=== PATIENT | male | born 1960 | race Caucasian/White ===

== ENCOUNTER 2020-02-28 11:02 | Outpatient (CLI) | payer OTHER, SELFPAY ==
--- NOTE | 2020-02-28 11:07 | USCV_ITS ---
Lucho Chavez Age: 60 Gender: M : 1960 Exam Date: 02/28/2020 11:28 Ordering Phys: Prabhu Stoner PA-C XX Technologist: Dereck Cano Exam [place]: [facility] [place] Indication: LEG PAIN HISTORY: Lower extremity pain. PROCEDURES: The following venous structures were evaluated: common femoral vein, profunda vein, proximal portion of the greater saphenous vein, superficial femoral vein, and the popliteal vein. In addition, the posterior tibial and peroneal trunk were evaluated. Serial compression, augmentation maneuvers, and spectral Doppler flow evaluation were performed. 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 The veins were found to be easily compressible with spontaneous blood flow. Non pulsatile flow pattern. CONCLUSIONS No evidence of DVT in the above-mentioned identifiable veins. Dr Favian Lechuga MD [facility] (Electronically Signed) Final Date: 28 February 2020 16:11 S
== END 2020-02-28 11:03 | disposition home or self-care (01) ==
LOC: RAD 11:05
PROVIDERS: Family Provider Physician Assistant Medical; PCP Physician Assistant Medical; Visit Provider Physician Assistant Medical
DX: M79.605 Pain in left leg (principal)
CPT/HCPCS: 93971

== ENCOUNTER 2020-06-19 09:10 | Outpatient (CLI) | payer OTHER, SELFPAY ==
--- NOTE | 2020-06-19 09:18 | US_ITS ---
WS: [id number] Abdomen ultrasound, 06/19/2020 Clinical Data: TRAUMATIC ECCHYMOSIS OF ABDOMINAL WALL Comparison: None. Findings: The subcutaneous tissue of the right side of the abdomen shows edema. There is no evidence of any cys t, mass or fluid collection. No abscess is seen. The pancreas shows no cyst, pseudocyst or evidence of pancreatitis. The liver shows no cysts, masses or dilated intrahepatic ducts. The gallbladder has no stones or sludge. The wall measures 0.3 cm with no pericholecystic fluid. The common bile duct is 0.3 cm and no intraductal abnormalities are noted. The right kidney is 10.6 cm. No cysts, masses or hydronephrosis is seen. The left kidney is 11.7 cm. No cysts, masses or hydronephrosis is seen. The abdominal aorta is not dilated and the inferior vena cava has normal flow. No vascular abnormalit ies are seen. The spleen measures 11.2 cm and there are no intrasplenic masses or capsular abnormalities. US/US abdomen complete* [id number] Impression: 1. Negative abdomen ultrasound. 2. Edema of the subcutaneous tissue of the right side of the abdomen but no flu id collection.
== END 2020-06-19 09:11 | disposition home or self-care (01) ==
LOC: US 09:15
PROVIDERS: PCP Physician Assistant Medical; Visit Provider Nurse Practitioner Family
DX: S30.1XXD Contusion of abdominal wall, subsequent encounter (principal); L03.311 Cellulitis of abdominal wall; X58.XXXD Exposure to other specified factors, subsequent encounter; R60.0 Localized edema
CPT/HCPCS: 76700

== ENCOUNTER 2020-07-07 07:52 | Outpatient (CLI) | payer OTHER, SELFPAY | END 2020-07-07 07:53 | disposition home or self-care (01) | LOC: WOUND 07:53 | PROVIDERS: PCP Physician Assistant Medical; Visit Provider Thoracic Surgery (Cardiothoracic Vascular Surgery) | DX: L03.313 Cellulitis of chest wall (principal) | CPT/HCPCS: 11042; 11045; G0463 ==

== ENCOUNTER 2020-07-08 11:05 | Outpatient (CLI) | payer OTHER, SELFPAY | END 2020-07-08 11:06 | disposition home or self-care (01) | LOC: WOUND 11:06 | PROVIDERS: PCP Physician Assistant Medical; Visit Provider Nurse Practitioner Family | DX: L03.311 Cellulitis of abdominal wall (principal) | CPT/HCPCS: G0463 ==

== ENCOUNTER 2020-07-09 11:03 | Outpatient (CLI) | payer OTHER, SELFPAY | END 2020-07-09 11:04 | disposition home or self-care (01) | LOC: WOUND 11:04 | PROVIDERS: PCP Physician Assistant Medical; Visit Provider Nurse Practitioner Family | DX: L03.311 Cellulitis of abdominal wall (principal) | CPT/HCPCS: 99214 ==

== ENCOUNTER 2020-07-10 11:05 | Outpatient (CLI) | payer OTHER, SELFPAY | END 2020-07-10 11:06 | disposition home or self-care (01) | LOC: WOUND 11:05 | PROVIDERS: PCP Physician Assistant Medical; Visit Provider Surgery | DX: L03.311 Cellulitis of abdominal wall (principal) | CPT/HCPCS: 99214 ==

== ENCOUNTER 2020-07-13 11:14 | Outpatient (CLI) | payer OTHER, SELFPAY | END 2020-07-13 11:15 | disposition home or self-care (01) | LOC: WOUND 11:14 | PROVIDERS: PCP Physician Assistant Medical; Visit Provider Nurse Practitioner Family | DX: L03.311 Cellulitis of abdominal wall (principal) | CPT/HCPCS: 99214 ==

== ENCOUNTER 2020-07-14 10:56 | Outpatient (CLI) | payer OTHER, SELFPAY | END 2020-07-14 10:57 | disposition home or self-care (01) | LOC: WOUND 10:57 | PROVIDERS: PCP Physician Assistant Medical; Visit Provider Thoracic Surgery (Cardiothoracic Vascular Surgery) | DX: L98.492 Non-pressure chronic ulcer of skin of other sites with fat layer exposed (principal) | CPT/HCPCS: 11042; 11045 ==

== ENCOUNTER 2020-07-21 10:57 | Outpatient (CLI) | payer OTHER, SELFPAY | END 2020-07-21 10:58 | disposition home or self-care (01) | LOC: WOUND 10:57 | PROVIDERS: PCP Physician Assistant Medical; Visit Provider Nurse Practitioner Family | DX: L98.492 Non-pressure chronic ulcer of skin of other sites with fat layer exposed (principal); L03.311 Cellulitis of abdominal wall | CPT/HCPCS: 11042; 11045 ==

== ENCOUNTER 2020-07-22 15:05 | Outpatient (CLI) | payer OTHER, SELFPAY | END 2020-07-22 15:06 | disposition home or self-care (01) | LOC: WOUND 15:08 | PROVIDERS: PCP Physician Assistant Medical; Visit Provider Thoracic Surgery (Cardiothoracic Vascular Surgery) | DX: L03.311 Cellulitis of abdominal wall (principal) | CPT/HCPCS: 97606 ==

== ENCOUNTER 2020-07-24 08:25 | Outpatient (CLI) | payer OTHER, SELFPAY | END 2020-07-24 08:26 | disposition home or self-care (01) | LOC: WOUND 08:26 | PROVIDERS: PCP Physician Assistant Medical; Visit Provider Surgery | DX: L03.311 Cellulitis of abdominal wall (principal) | CPT/HCPCS: 97606 ==

== ENCOUNTER 2020-07-28 10:48 | Outpatient (CLI) | payer OTHER, SELFPAY | END 2020-07-28 10:49 | disposition home or self-care (01) | LOC: WOUND 10:48 | PROVIDERS: PCP Physician Assistant Medical; Visit Provider Thoracic Surgery (Cardiothoracic Vascular Surgery) | DX: L98.492 Non-pressure chronic ulcer of skin of other sites with fat layer exposed (principal) | CPT/HCPCS: 11042; 11045 ==

== ENCOUNTER 2020-07-31 15:04 | Outpatient (CLI) | payer OTHER, SELFPAY | END 2020-07-31 15:05 | disposition home or self-care (01) | LOC: WOUND 15:05 | PROVIDERS: PCP Physician Assistant Medical; Visit Provider Nurse Practitioner Family | DX: L03.311 Cellulitis of abdominal wall (principal) | CPT/HCPCS: 97606 ==

== ENCOUNTER 2020-08-04 10:53 | Outpatient (CLI) | payer OTHER, SELFPAY | END 2020-08-04 10:54 | disposition home or self-care (01) | LOC: WOUND 10:53 | PROVIDERS: PCP Physician Assistant Medical; Visit Provider Thoracic Surgery (Cardiothoracic Vascular Surgery) | DX: L03.311 Cellulitis of abdominal wall (principal); L98.492 Non-pressure chronic ulcer of skin of other sites with fat layer exposed | CPT/HCPCS: 11042; 11045 ==

== ENCOUNTER 2020-08-14 08:50 | Outpatient (CLI) | payer OTHER, SELFPAY | END 2020-08-14 08:51 | disposition home or self-care (01) | LOC: WOUND 08:51 | PROVIDERS: PCP Physician Assistant Medical; Visit Provider Surgery | DX: L03.311 Cellulitis of abdominal wall (principal) | CPT/HCPCS: 97606 ==

== ENCOUNTER 2020-08-19 10:16 | Outpatient (CLI) | payer OTHER, SELFPAY | END 2020-08-19 10:17 | disposition home or self-care (01) | LOC: WOUND 10:21 | PROVIDERS: PCP Physician Assistant Medical; Visit Provider Nurse Practitioner Family | DX: L98.492 Non-pressure chronic ulcer of skin of other sites with fat layer exposed (principal) | CPT/HCPCS: 11042; 11045 ==

== ENCOUNTER 2020-08-24 14:30 | Outpatient (CLI) | payer OTHER, SELFPAY | END 2020-08-24 14:31 | disposition home or self-care (01) | LOC: WOUND 14:30 | PROVIDERS: PCP Physician Assistant Medical; Visit Provider Thoracic Surgery (Cardiothoracic Vascular Surgery) | DX: L98.493 Non-pressure chronic ulcer of skin of other sites with necrosis of muscle (principal) | CPT/HCPCS: 11042; 11045; 87070; 87077; 87176; 87186; 87205; 97606 ==

== ENCOUNTER 2025-05-20 08:20 | Outpatient (CLI) | payer MEDICARE, SELFPAY ==
--- NOTE | 2025-05-20 08:31 | FL_ITS ---
WS: [id number] Exam: FL barium swallow [id number] Date/Time of Exam: 05/20/2025 8:32 AM Reason For Exam: DYSPHAGIA Fluoroscopy time: 2min [id number] minutes # of spot films: Oropharyngeal phase of swallowing was normal. There was no sign of intrinsic esophageal mass or stricture. There is mild posterior extrinsic compression of the cervical esophagus at the C5-6 level secondary to anterior osteophytes. This causes minimal narrowing. No hiatal hernia or gastroesophageal reflux noted. Esophageal motility was otherwise normal. FL/FL barium swallow [id number] IMPRESSION: 1. Mild posterior extrinsic compression of the cervical esophagus at the C5-6 l evel secondary to prominent anterior osteophytes. This causes only minimal constance nal narrowing. 2. No intrinsic esophageal mass, stricture or other significant finding.
== END 2025-05-20 08:21 | disposition home or self-care (01) ==
LOC: RAD 08:22
PROVIDERS: PCP Nurse Practitioner Family; Visit Provider Nurse Practitioner Family
DX: R13.10 Dysphagia, unspecified (principal); K22.2 Esophageal obstruction; M25.78 Osteophyte, vertebrae; M50.322 Other cervical disc degeneration at C5-C6 level
CPT/HCPCS: 74220

== ENCOUNTER 2025-05-22 10:07 | Outpatient (CLI) | payer MEDICARE, SELFPAY ==
--- NOTE | 2025-05-22 10:15 | FL_ITS ---
WS: [id number] Exam: FL barium swallow modifd [id number] Date/Time of Exam: 05/22/2025 10:42 AM Reason For Exam: Other dysphagia Fluoroscopy time: 4min [id number] minutes # of spot films: 0 Modified barium swallow study was performed in conjunction with the speech therapy service. Oral pharyngeal phase of swallowing was normal. The patient tolerated all consistencies of barium mixture foodstuffs without aspiration or penetration. The patient ingested a barium tablet without difficulty. FL/FL barium swallow modifd [id number] IMPRESSION: 1. No penetration or aspiration identified. A separate report with recommendations will follow from the speech therapy serv ice.
== END 2025-05-22 10:08 | disposition home or self-care (01) ==
LOC: RAD 10:11
PROVIDERS: PCP Nurse Practitioner Family; Visit Provider Nurse Practitioner Family
DX: R13.19 Other dysphagia (principal)
CPT/HCPCS: 74230; 92611

== ENCOUNTER 2025-06-16 11:17 | Inpatient (IN) | payer MEDICARE, SELFPAY ==
--- OUTSIDE RECORDS SUMMARY | 2025-06-11 10:40 | XMS_ITS | Encounter Summary ---
Author Organization [facility] Address [address] [place] [address] Care Team Providers Care Coffin Maker Name Role Phone Zehra Gottlieb MD Primary Care Provider [phone] Reason for Referral * CT Scan (Urgent) - Closed Specialty Diagnoses / Procedures Referred By Donnell brewer Referred To Contact Radiology Diagnoses Shortness of breath Procedures CT CHEST WO CONTRAST Arcelia Whaley FNP [address] [place] [address] Phone: tel: fax: [facility] CT Scan [place] [address] [place] [address] Phone: tel: fax: Referral ID Status Reason Start Date Expiration Date V isits Requested Visits Authorized [id number] Closed [facility] View CTS to Schedule 06/11/2025 07/12/2026 1 1 Reason for Visit * Reason Comments Follow Up Encounter Details Date Type Department Care Team (Late st Contact Info) Description 06/11/2025 10:40 AM CDT Office Visit [facility] Family Medicine [place] [address] [facility] [address] [place] [address] Arcelia Whaley FNP [address] [place] [address] Shortness of breath (Primary Dx); Choking sensation; Encounter for colorectal cancer screening Social History Tobacco Use Types Packs/Day Years Used Date Smoking Tobacco: Former Cigarettes Q uit: 03/11/2016 Smokeless Tobacco: Never Alcohol Use Standard Drinks/Week Comments Yes 6 (1 standard drink = 0.6 oz pur e alcohol) Feeling Safe Answer Date Recorded Are you in a relationship wi th someone who hurts you emotionally and/or physically? 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 Gender Identity Not on file Sexual Orientation Not on file documented as of this encounter Last Filed Vital Signs Vital Sign Reading Time Taken Comments Blood Pressure 140/72 06/11/2025 10:44 AM CDT Pulse 104 06/11/2025 10:44 AM CDT Temperature 36.9 C (98.5 F) 06/11/2025 10:44 AM CDT Respiratory Rate 17 06/11/2025 10:44 AM CDT Oxygen Saturation 86% 06/11/2025 10:44 AM CDT Inhaled Oxygen Concentration - - Weight 82.7 kg (182 lb 6.4 oz) 06/11/2025 10:44 AM CDT Height 170.2 cm (5' 7 ) 06/11/2025 10:44 AM CDT Body Mass Index 28.57 06/11/2025 10:44 AM CDT documented in this encounter Progress Notes * Arcelia Whaley FNP - 06/11/2025 12:42 PM CDT HISTORY OF PRESENT ILLNESS: Chief Complaint Patient presents with Follow Up Subjective History of Present Illness The patient is a 65-year-old male who presents to the clinic for follow-up. He has been attempting to sleep in an upright position for the past two days due to a gurgling sound when lying down, which he believes is impacting his breathing. This gurgling sound was initially intermittent but has become more frequent, often waking him from sleep. He also experiences shortnessof breath during physical activities such as walking across his yard, necessitating frequent stops.He reports that his condition has worsened over the past week. He has sought emergency care and undergone an EKG, but no definitive diagnosis has been made. He has an upcoming appointment with an ENTspecialist on 06/16/2025. He has previously undergone a barium test and a breathing test. He describes a sensation of constriction in his throat, which he feels is preventing him from taking deep breaths. He has been trying to breathe through his nose, as he has always done, but finds it difficult.He has a persistent cough and feels as though nothing is being expelled or swallowed. He notes thathis pulse rate increases when he attempts to slow down his breathing. Sleep: He has been attempting to sleep in an upright position for the past two days. REVIEW OF SYSTEMS Review of Systems Constitutional: Negative for activity change, appetite change, fatigue and fever. HENT: Positive for trouble swallowing. Negative for congestion, postnasal drip, rhinorrhea and sorethroat. Respiratory: Positive for cough, choking, shortness of breath and wheezing. Negative for chest tightness. Cardiovascular: Negative for chest pain. Gastrointestinal: Negative for abdominal pain, diarrhea, nausea and vomiting. Musculoskeletal: Negative for arthralgias and myalgias. Skin: Negative for color change. Neurological: Negative for dizziness, weakness, light-headedness and headaches. Psychiatric/Behavioral: Negative for sleep disturbance. Objective PHYSICAL EXAM BP (!) 140/72 (BP Location: Left arm, Patient Position (BP): Sitting, BP Cuff Size: Large Adult) Pulse (!) 104 Temp 98.5 ??F (36.9 ??C) (Temporal) Resp 17 Ht 5' 7 (1.702 m) Wt 82.7 kg (182lb 6.4 oz) SpO2 (!) 86% BMI 28.57 kg/m?? Physical Exam Vitals reviewed. Constitutional: General: He is not in acute distress. Appearance: Normal appearance. HENT: Head: Normocephalic and atraumatic. Right Ear: External ear normal. Left Ear: External ear normal. Eyes: Conjunctiva/sclera: Conjunctivae normal. Cardiovascular: Rate and Rhythm: Regular rhythm. Tachycardia present. Heart sounds: Normal heart sounds. Pulmonary: Effort: Pulmonary effort is normal. Breath sounds: Wheezing present. Musculoskeletal: General: No deformity. Cervical back: Neck supple. Skin: General: Skin is warm. Findings: No rash. Neurological: Mental Status: He is alert and oriented to person, place, and time. Psychiatric: Behavior: Behavior normal. Results ASSESSMENT and PLAN: Orders Placed This Encounter CT CHEST WO CONTRAST Assessment & Plan 1. Shortness of breath: Subacute. - Worsening shortness of breath, difficulty breathing when lying down, and needing to sleep sittingup. Panting and increased pulse rate when walking across the yard. Oxygen levels are suboptimal, potentially due to inadequate nasal breathing. Struggles with deep inhalation and exhalation, feeling constricted. - Conduct EKG today to assess cardiac function. - If EKG results are abnormal, consider further cardiac evaluation. - If EKG is normal, arrange stat CT of the lungs at [place] to investigate potential pulmonary causes. Follow-up - ENT appointment on Monday. - Neurosurgeon consultation on the . STUART Montague, 06/11/2025 8:19 PM The author of this note, patient (or authorized technical support representative), and all other persons present consent to the audio recording of this visit for charting documentation purposes. This note was automatically generated by a [employer] AI technology (Solid Sound), reviewed, edited, and finalized by STUART Montague. documented in this encounter Plan of Treatment Upcoming Encounters Date Type Department Care Team (Late st Contact Info) Description 06/19/2025 1:20 PM CDT Office Visit [facility] Medicine [address] [address] Arcelia Whaley FNP [address] [place] [address] 07/02/2025 10:00 AM CDT Office Visit [facility] Neurosurgery [address] [place] [address] Valerie Mills NP [address] [place] [address] documented as of this encounter Results * CT CHEST WO CONTRAST (06/11/2025 2:42 PM CDT) Anatomical Region Laterality Modality Chest Computed Tomogra phy 06/11/2025 2:27 PM CDT Impressions 06/11/2025 3:11 PM CDT IMPRESSION: Please see below. Exam: CT CHEST WO CONTRAST Date/Time of Exam: 06/11/2025 2:42 PM Reason For Exam: Dyspnea, chronic, unclear etiology. Diagnosis: Shortness of breath. Technique: CT of the chest was performed without the administration of intravenous contrast. Comparison: April 01, 2016. FINDINGS: Evaluation of the vasculature is limited without the use of contrast. Thoracic Inlet: The thoracic inlet is within normal limits. Lymph Nodes: There are no pathologic axillary, mediastinal or hilar lymph nodes by size criteria. Heart: The heart is normal in size. There are coronary artery calcifications. There is no pericardial effusion. Lungs: There is no pulmonary consolidation. No pneumothorax. No pleural effusion. Airways are clear. Calcified granulomas. There is faint groundglass airspace disease seen bilaterally, nodose notable in the right middle and lower lobes. There is mild bronchiectasis. Upper Abdomen: Liver appears mildly hyperdense. Right renal cyst. Nodular thickening of the adrenal glands. Subcutaneous Soft Tissues: There is no significant subcutaneous soft tissue pathology. Bones: The osseous structures appear grossly intact. No suspicious osseous lesions are identified. IMPRESSION: Faint groundglass airspace disease bilaterally and mild bronchiectasis suggestive of an infectious/inflammatory process. Narrative Procedure Note Cristhian Polo MD - 06/11/2025 IMPRESSION: Please see below. Exam: CT CHEST WO CONTRAST Date/Time of Exam: 06/11/2025 2:42 PM Reason For Exam: Dyspnea, chronic, unclear etiology. Diagnosis: Shortness of breath. Technique: CT of the chest was performed without the administration of intravenous contrast. Comparison: April 01, 2016. FINDINGS: Evaluation of the vasculature is limited without the use of contrast. Thoracic Inlet: The thoracic inlet is within normal limits. Lymph Nodes: There are no pathologic axillary, mediastinal or hilar lymph nodes by size criteria. Heart: The heart is normal in size. There are coronary artery calcifications. There is no pericardial effusion. Lungs: There is no pulmonary consolidation. No pneumothorax. No pleural effusion. Airways are clear. Calcified granulomas. There is faint groundglass airspace disease seen bilaterally, nodose notable in the right middle and lower lobes. There is mild bronchiectasis. Upper Abdomen: Liver appears mildly hyperdense. Right renal cyst. Nodular thickening of the adrenal glands. Subcutaneous Soft Tissues: There is no significant subcutaneous soft tissue pathology. Bones: The osseous structures appear grossly intact. No suspicious osseous lesions are identified. IMPRESSION: Faint groundglass airspace disease bilaterally and mild bronchiectasis suggestive of an infectious/inflammatory process. Arcelia Whaley [facility] CT ORDERABLES Final Result documented in this encounter Visit Diagnoses Diagnosis Shortness of breath- Primary Choking sensation Other symptoms involving head and neck Encounter for colorectal cancer screening Special screening for malignant neoplasms, colon Shortness of breath documented in this encounter Care Teams Coffin Maker Relationship Specialty Start Date End Date Zehra Gottlieb MD [address] [address] PCP - General Family Practice 11/15/23 documented as of this encounter
--- OUTSIDE RECORDS SUMMARY | 2025-06-11 14:15 | XMS_ITS | Encounter Summary ---
Author Organization [employer] Address [address] [place] [address] Care Team Providers Care Welder Gas Tungsten Arc Name Role Phone Zehra Gottlieb MD Primary Care Provider [phone] Reason for Referral * CT Scan (Urgent) - Closed Specialty Diagnoses / Procedures Referred By Donnell brewer Referred To Contact Radiology Diagnoses Shortness of breath Procedures CT CHEST WO CONTRAST Arcelia Whaley FNP [address] [place] [address] Phone: tel: fax: [facility] CT Scan [place] [address] [facility] [address] [place] [address] Phone: tel: fax: Referral ID Status Reason Start Date Expiration Date V isits Requested Visits Authorized [id number] Closed [facility] View CTS to Schedule 06/11/2025 07/12/2026 1 1 Reason for Visit * CT Scan (Urgent) - Closed Specialty Diagnoses / Procedures Referred By Donnell brewre Referred To Contact Radiology Diagnoses Shortness of breath Procedures CT CHEST WO CONTRAST Arcelia Whaley FNP [address] [place] [address] Phone: tel: fax: [facility] CT Scan [place] [address] [facility] [address] [place] [address] Phone: tel: fax: Referral ID Status Reason Start Date Expiration Date V isits Requested Visits Authorized [id number] Closed [facility] View CTS to Schedule 06/11/2025 07/12/2026 1 1 Encounter Details Date Type Department Care Team (Latest Contact Info) Description 06/11/2025 2:15 PM CDT - 06/11/2025 11:59 PM CDT Hospital Encounter [facility] CT Scan [place] [address] [place] [address] Arcelia Whaley, CONSULTANT LUXURY AND 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 03/20/2025 ofloxacin (FLOXIN) 0.3 % Drops INSTILL 4 DROPS INTO RIGHT EAR TWICE DAILY FOR 7 DAYS 03/20/2025 metoprolol succinate (TOPROL XL) 25 mg Extended Release 24 hour tabletIndications: Essential hypertension Take 1 Tablet (25 mg) by mouth daily. 100 Tablet 1 03/11/2025 baclofen (LIORESAL) 10 mg tablet take 1 tablet by mouth three times daily as needed for pain 2025 losartan (COZAAR) 100 mg tabletIndications: Essential hypertension Take 1 Tablet (100 mg) by mouth daily. 100 Tablet 3 11/11/2024 rivaroxaban (Xarelto) 20 mg TabletIndications: Factor V Leiden mutation Take 1 Tablet (20 mg) by mouth daily with supper. 100 Tablet 3 07/19/2024 brimonidine (ALPHAGAN P) 0.15 % solution INSTILL 1 DROP INTO LEFT EYE THREE TIMES DAILY 01/16/2024 dorzolamide-timolo L (COSOPT) 22.3-6.8 mg/mL solution instill 1 drop into each eye twice daily 12/06/2023 Rocklatan 0.02-0.005 % solution INSTILL 1 DROP INTO EACH EYE ONCE EVERY NIGHT AT BEDTIME 01/24/2024 MEN'S MULTI-VITAMIN ORAL Take by mouth. 03/17/2021 nitroglycerin (NITROSTAT) 0.4 mg Tablet, Sublingual Place 1 Tablet (0.4 mg) under tongue every 5 minutes as needed for Chest Pain. 10/21/2018 CALCIUM-MAGNESIUM- ZINC ORAL Take 3 Tablet by mouth daily. 03/02/2016 documented as of this encounter Plan of Treatment Upcoming Encounters Date Type Department Care Team (Late st Contact Info) Description 06/19/2025 1:20 PM CDT Office Visit [facility] Medicine [address] [phone] Arcelia Whaley FNP [address] [place] [address] 07/02/2025 10:00 AM CDT Office Visit [facility] Neurosurgery [address] [place] [address] Valerie Mills, DAVON [address] [place] [address] documented as of this encounter Procedures Procedure Name Priority Date/Time Associated Diagnosis Comments CT CHEST WO CONTRAST Stat 06/11/2025 2:42 PM CDT Shortness of breath documented in this encounter Results * CT CHEST WO [...] suggestive of an infectious/inflammatory process. Arcelia Whaley [facility] CT ORDERABLES Final Result documented in this encounter Visit Diagnoses Diagnosis Shortness of breath documented in this encounter Care Teams Welder Gas Tungsten Arc Relationship Specialty Start Date End Date Zehra Gottlieb MD [address] [phone] PCP - General Family Practice 11/15/23 documented as of this encounter
--- OUTSIDE RECORDS SUMMARY | 2025-06-16 11:23 | XMS_ITS | Encounter Summary ---
Author Organization [facility] Address 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 Gender Identity Not on file Sexual Orientation Not on file documented as of this encounter Plan of Treatment Upcoming Encounters Date Type Department Care Team (Late st Contact Info) Description 06/19/2025 1:20 PM CDT Office Visit [address] [phone] Arcelia Whaley FNP [address] [place] [phone] 07/02/2025 10:00 AM CDT Office Visit [facility] Neurosurgery [address] [place] [address] Valerie Mills, BOOK PUBLISHER [address] [place] [address] documented as of this encounter Visit Diagnoses Diagnosis Pneumonia of right lung due to infectious organism, unspecified part of lung- Primary documented in this encounter Care Teams Junior Software Developer Relationship Specialty Start Date End Date Zehra Gottlieb MD [address] [address] PCP - General Family Practice 11/15/23 documented as of this encounter
--- OUTSIDE RECORDS SUMMARY | 2025-06-16 11:23 | XMS_ITS | Encounter Summary ---
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 Gender Identity Not on file Sexual Orientation Not on file documented as of this encounter Plan of Treatment Not on file documented as of this encounter Visit Diagnoses Diagnosis oil heaterman (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
--- OUTSIDE RECORDS SUMMARY | 2025-06-16 11:23 | XMS_ITS | Encounter Summary ---
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 Gender Identity Not on file Sexual Orientation Not on file documented as of this encounter Plan of Treatment Not on file documented as of this encounter Visit Diagnoses Diagnosis Unspecified venous (peripheral) insufficiency- Primary documented in this encounter Additional Health Concerns Infection Onset Date Last Indicated Resolved Time COVID-19 08/22/2020 08/22/2020 09/21/2020 8:09 PM MARKETING CLERK documented as of this encounter Care Teams General Dentist/Owner Relationship Specialty Start Date End Date Carlos Hilario MD [address] [facility] [address] [place] [address] PCP - General Family Practice 03/17/21 documented as of this encounter
--- OUTSIDE RECORDS SUMMARY | 2025-06-16 11:23 | XMS_ITS | Encounter Summary ---
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 Gender Identity Not on file Sexual Orientation Not on file documented as of this encounter Plan of Treatment Not on file documented as of this encounter Visit Diagnoses Diagnosis long term care administrator (current) use of anticoagulants- Primary Long-term (current) use of anticoagulants documented in this encounter Additional Health Concerns Infection Onset Date Last Indicated Resolved Time COVID-19 08/22/2020 08/22/2020 09/21/2020 8:09 PM BRIDGES SUPERVISOR documented as of this encounter Care Teams Edger Automatic Relationship Specialty Start Date End Date Carlos Hilario MD [address] [facility] [address] [place] [address] PCP - General Family Practice 03/17/21 documented as of this encounter
--- OUTSIDE RECORDS SUMMARY | 2025-06-16 11:23 | XMS_ITS | Encounter Summary ---
Author Organization [facility] Address [address] [place] [address] Care Team Providers Care Auditing Manager Name Role Phone Carlos Hilario MD Primary Care Provider +1 [phone] Encounter Details Date Type Department Care Team (Latest Contact Info) Description 10/29/2001 Outpatient Historical HIS [facility] ARTHROPATHY NOS-UNSPEC (Primary Dx) Social History Tobacco Use Types Packs/Day Years Used Date Smoking Tobacco: Never Assessed Sex and Gender Information Value Date Recorded Sex Assigned at Not on file Legal Sex Male 3:11 AM VP AD SALES WEST Gender Identity Not on file Sexual Orientation Not on file documented as of this encounter Plan of Treatment Not on file documented as of this encounter Visit Diagnoses Diagnosis Arthropathy, unspecified, site unspecified- Primary documented in this encounter Additional Health Concerns Infection Onset Date Last Indicated Resolved Time COVID-19 08/22/2020 08/22/2020 09/21/2020 8:09 PM VP AD SALES WEST documented as of this encounter Care Teams Auditing Manager Relationship Specialty Start Date End Date Carlos Hilario MD [address] [facility] [address] [place] [address] PCP - General Family Practice 03/17/21 documented as of this encounter
--- OUTSIDE RECORDS SUMMARY | 2025-06-16 11:23 | XMS_ITS | Encounter Summary ---
Author Organization [facility] Address [address] [place] [address] Care Team Providers Care Skiver Welt End Name Role Phone Carlos Hilario MD Primary Care Provider +1 [phone] Encounter Details Date Type Department Care Team (Latest Contact Info) Description 07/31/2002 Outpatient Historical HIS [facility] POLYURIA (Primary Dx) Social History Tobacco Use Types Packs/Day Years Used Date Smoking Tobacco: Never Assessed Sex and Gender Information Value Date Recorded Sex Assigned at Not on file Legal Sex Male 3:11 AM CONSTRUCTION LINEMAN Gender Identity Not on file Sexual Orientation Not on file documented as of this encounter Plan of Treatment Not on file documented as of this encounter Visit Diagnoses Diagnosis Polyuria- Primary documented in this encounter Additional Health Concerns Infection Onset Date Last Indicated Resolved Time COVID-19 08/22/2020 08/22/2020 09/21/2020 8:09 PM CONSTRUCTION LINEMAN documented as of this encounter Care Teams Skiver Welt End Relationship Specialty Start Date End Date Carlos Hilario MD [address] [facility] [address] [place] [address] PCP - General Family Practice 03/17/21 documented as of this encounter
--- OUTSIDE RECORDS SUMMARY | 2025-06-16 11:23 | XMS_ITS | Encounter Summary ---
Author Organization [employer] [facility] Address [address] [place] [address] Care Team Providers Care Counselor Camp Name Role Phone Carlos Hilario MD Primary Care Provider +1 [phone] Encounter Details Date Type Department Care Team (Latest Contact Info) Description 07/30/2002 Outpatient Historical HIS [facility] URGE INCONTINENCE (Primary Dx); SHIVA DEF CLOT FACTOR NEC ([facility]) Social History Tobacco Use Types Packs/Day Years Used Date Smoking Tobacco: Never Assessed Sex and Gender Information Value Date Recorded Sex Assigned at Not on file Legal Sex Male 3:11 AM SUPERVISOR MAILS Gender Identity Not on file Sexual Orientation Not on file documented as of this encounter Plan of Treatment Not on file documented as of this encounter Visit Diagnoses Diagnosis Urge incontinence- Primary Congenital deficiency of other clotting factors (CMS/[facility]ERLY [facility]) Congenital deficiency of other clotting factors documented in this encounter Additional Health Concerns Infection Onset Date Last Indicated Resolved Time COVID-19 08/22/2020 08/22/2020 09/21/2020 8:09 PM SUPERVISOR MAILS documented as of this encounter Care Teams Counselor Camp Relationship Specialty Start Date End Date Carlos Hilario MD [address] [place] [address] PCP - General Family Practice 03/17/21 documented as of this encounter
--- OUTSIDE RECORDS SUMMARY | 2025-06-16 11:23 | XMS_ITS | Encounter Summary ---
Author Organization [employer] [facility] Address [address] [place] [address] Care Team Providers Care Scientific Editor Name Role Phone Carlos Hilario MD Primary Care Provider [phone] [phone] Encounter Details Date Type Department Care Team (Late st Contact Info) Description 08/30/2002 Outpatient Historical [facility] Wilton Arellano MD [address] [place] [address] Social History Tobacco Use Types Packs/Day Years Used Date Smoking Tobacco: Never Assessed Sex and Gender Information Value Date Recorded Sex Assigned at Not on file Legal Sex Male 3:11 AM DATA MANAGEMENT ASSOCIATE Gender Identity Not on file Sexual Orientation Not on file documented as of this encounter Plan of Treatment Not on file documented as of this encounter Visit Diagnoses Not on filedocumented in this encounter Additional Health Concerns Infection Onset Date Last Indicated Resolved Time COVID-19 08/22/2020 08/22/2020 09/21/2020 8:09 PM DATA MANAGEMENT ASSOCIATE documented as of this encounter Care Teams Scientific Editor Relationship Specialty Start Date End Date Carlos Hilario MD [address] [place] [address] PCP - General Family Practice 03/17/21 documented as of this encounter
--- OUTSIDE RECORDS SUMMARY | 2025-06-16 11:23 | XMS_ITS | Encounter Summary ---
Author Organization [facility] Address [address] [place] [address] Care Team Providers Care Restoration Ecologist Name Role Phone Carlos Hilario MD Primary Care Provider [phone] [phone] Encounter Details Date Type Department Care Team (Latest Contact Info) Description 02/11/2002 Outpatient Historical HIS [facility] ANTICOAG USE (Primary Dx) Social History Tobacco Use Types Packs/Day Years Used Date Smoking Tobacco: Never Assessed Sex and Gender Information Value Date Recorded Sex Assigned at Not on file Legal Sex Male 3:11 AM SPINNING ROOM WORKER Gender Identity Not on file Sexual Orientation Not on file documented as of this encounter Plan of Treatment Not on file documented as of this encounter Visit Diagnoses Diagnosis 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
--- OUTSIDE RECORDS SUMMARY | 2025-06-16 11:23 | XMS_ITS | Encounter Summary ---
Author Organization [facility] Address [address] [place] [address] Care Team Providers Care Lump Roller Name Role Phone Carlos Hilario MD Primary Care Provider [phone] [phone] Encounter Details Date Type Department Care Team (Latest Contact Info) Description 01/25/2002 Outpatient Historical HIS [facility] ANTICOAG USE (Primary Dx) Social History Tobacco Use Types Packs/Day Years Used Date Smoking Tobacco: Never Assessed Sex and Gender Information Value Date Recorded Sex Assigned at Not on file Legal Sex Male 3:11 AM MASS SPECTROMETRY SPECIALIST Gender Identity Not on file Sexual Orientation Not on file documented as of this encounter Plan of Treatment Not on file documented as of this encounter Visit Diagnoses Diagnosis terminal 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
--- OUTSIDE RECORDS SUMMARY | 2025-06-16 11:23 | XMS_ITS | Encounter Summary ---
Author Organization [employer] [facility] Address [address] [place] [address] Care Team Providers Care Acid Retort Operator Name Role Phone Carlos Hilario MD Primary Care Provider [phone] [phone] Encounter Details Date Type Department Care Team (Late st Contact Info) Description 07/31/2002 Outpatient Historical [facility] Wilton Arellano MD [address] [place] [address] Social History Tobacco Use Types Packs/Day Years Used Date Smoking Tobacco: Never Assessed Sex and Gender Information Value Date Recorded Sex Assigned at Not on file Legal Sex Male 3:11 AM ABRASIVE SAWYER Gender Identity Not on file Sexual Orientation Not on file documented as of this encounter Plan of Treatment Not on file documented as of this encounter Visit Diagnoses Not on filedocumented in this encounter Additional Health Concerns Infection Onset Date Last Indicated Resolved Time COVID-19 08/22/2020 08/22/2020 09/21/2020 8:09 PM ABRASIVE SAWYER documented as of this encounter Care Teams Acid Retort Operator Relationship Specialty Start Date End Date Carlos Hilario MD [address] [place] [address] PCP - General Family Practice 03/17/21 documented as of this encounter
--- OUTSIDE RECORDS SUMMARY | 2025-06-16 11:23 | XMS_ITS | Encounter Summary ---
Author Organization [facility] Address [address] [place] [address] Care Team Providers Care Pockets And Pieces Necktie Operator Name Role Phone Carlos Hilario MD Primary Care Provider [phone] [phone] Encounter Details Date Type Department Care Team (Latest Contact Info) Description 11/30/2001 Outpatient Historical HIS [facility] RESIDENTIAL ANTICOAG USE (Primary Dx) Social History Tobacco Use Types Packs/Day Years Used Date Smoking Tobacco: Never Assessed Sex and Gender Information Value Date Recorded Sex Assigned at Not on file Legal Sex Male 3:11 AM BIOLOGY LECTURER Gender Identity Not on file Sexual Orientation Not on file documented as of this encounter Plan of Treatment Not on file documented as of this encounter Visit Diagnoses Diagnosis 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
--- OUTSIDE RECORDS SUMMARY | 2025-06-16 11:23 | XMS_ITS | Encounter Summary ---
Author Organization [employer] [facility] Address [address] [place] [address] Care Team Providers Care First Coat Sander Name Role Phone Carlos Hilario MD Primary Care Provider [phone] [phone] Encounter Details Date Type Department Care Team (Latest Contact Info) Description 07/10/2002 Outpatient Historical HIS [facility] VENOUS INSUFFICIENCY NOS (Primary Dx); PERS HX CIRCULATORY DIS NEC Social History Tobacco Use Types Packs/Day Years Used Date Smoking Tobacco: Never Assessed Sex and Gender Information Value Date Recorded Sex Assigned at Not on file Legal Sex Male 3:11 AM SENIOR PROGRAMMER Gender Identity Not on file Sexual Orientation Not on file documented as of this encounter Plan of Treatment Not on file documented as of this encounter Visit Diagnoses Diagnosis Unspecified venous (peripheral) insufficiency- Primary Personal history of other diseases of circulatory system documented in this encounter Additional Health Concerns Infection Onset Date Last Indicated Resolved Time COVID-19 08/22/2020 08/22/2020 09/21/2020 8:09 PM SENIOR PROGRAMMER documented as of this encounter Care Teams First Coat Sander Relationship Specialty Start Date End Date Carlos Hilario MD [address] [facility] [address] [place] [address] PCP - General Family Practice 03/17/21 documented as of this encounter
--- OUTSIDE RECORDS SUMMARY | 2025-06-16 11:23 | XMS_ITS | Encounter Summary ---
Author Organization [email or web address] [facility] Address [address] [place] [address] Care Team Providers Care Photoengraving Supervisor Name Role Phone Carlos Hilario MD Primary Care Provider +1 [phone] Encounter Details Date Type Department Care Team (Latest Contact Info) Description 08/30/2002 Outpatient Historical [facility] ABN BLOOD CHEMISTRY NEC (Primary Dx); ACUTE URI NOS; SCREENING MAL NEOP-PROSTATE Social History Tobacco Use Types Packs/Day Years Used Date Smoking Tobacco: Never Assessed Sex and Gender Information Value Date Recorded Sex Assigned at Not on file Legal Sex Male 3:11 AM ENGINE HOUSE HELPER Gender Identity Not on file Sexual Orientation Not on file documented as of this encounter Plan of Treatment Not on file documented as of this encounter Visit Diagnoses Diagnosis Other abnormal blood chemistry- Primary Acute upper respiratory infections of unspecified site Special screening for malignant neoplasm of prostate documented in this encounter Additional Health Concerns Infection Onset Date Last Indicated Resolved Time COVID-19 08/22/2020 08/22/2020 09/21/2020 8:09 PM ENGINE HOUSE HELPER documented as of this encounter Care Teams Photoengraving Supervisor Relationship Specialty Start Date End Date Carlos Hilario MD [address] [place] [address] PCP - General Family Practice 03/17/21 documented as of this encounter
--- OUTSIDE RECORDS SUMMARY | 2025-06-16 11:24 | XMS_ITS | Encounter Summary ---
Author Organization [facility] Address [address] [place] [address] Care Team Providers Care Return Checker Name Role Phone Carlos Hilario MD Primary Care Provider +1 [phone] Encounter Details Date Type Department Care Team (Late st Contact Info) Description 06/06/2016 Lab Requisition [facility] [address] [place] [address] Benjy Morrison MD NO ADDRESS ON FILE Social History Tobacco Use Types Packs/Day Years Used Date Smoking Tobacco: Former Cigarettes Q uit: 03/11/2016 Cigars Smokeless Tobacco: Never Alcohol Use Standard Drinks/Week Comments Yes 6 (1 standard drink = 0.6 oz pur e alcohol) 6 pack a day Sex and Gender Information Value Date Recorded Sex Assigned at Not on file Legal Sex Male 3:11 AM PHOSPHATIC FERTILIZER SUPERVISOR Gender Identity Not on file Sexual Orientation Not on file Occupation Industry Job Start Date Job End Date Not on file Not on file Not on file Not on file documented as of this encounter Plan of Treatment Not on file documented as of this encounter Procedures Procedure Name Priority Date/Time Associated Diagnosis Comments GLUCOSE FASTING Routine 06/06/2016 8:40 AM CDT LIPID PANEL Routine 06/06/2016 8:40 AM CDT documented in this encounter Results * GLUCOSE FASTING (06/06/2016 8:40 AM CDT) GLUCOSE-FASTIN G 83 70 - 99 mg/dL 06/06/2016 1:27 PM CDT [facility] [employer] [facility] Blood Collection / Unknown 06/06/2016 8:40 AM CDT 06/06/2016 12:07 PM CDT Narrative [facility] - 06/06/2016 1:27 PM CDT <100 mg/dl: Normal Fasting Glucose 100-125 mg/dl: Impaired Fasting Glucose >/=126 mg/dl: Provisional diagnosis of Diabetes The diagnosis must be confirmed. Benjy Morrison MD CHEMISTRY ORDERABLES Final Res ult [facility] CLIA# [id number] [address] [place] [address] * (ABNORMAL) LIPID PANEL (06/06/2016 8:40 AM CDT) [facility] CHOLESTEROL 166 <200 mg/dL 06/06/2016 1:31 PM CDT [facility] TRIGLYCERIDE <30 <150 mg/dL 06/06/2016 1:31 PM T [facility] HDL 102(H) 40 - 59 mg/dL 06/06/2016 1:31 PM T [facility] LDL CALCULATED <100 mg/dL 06/06/2016 1:31 PM T [facility] Comment:LDL is not calculate d when the Triglyceride result is less than 30. NON-HDL CHOLESTEROL 64 <130 mg/dL 06/06/2016 1:31 PM T [facility] Blood Collection / Unknown 06/06/2016 8:40 AM CDT 06/06/2016 12:07 PM CDT Narrative [facility] - 06/06/2016 1:31 PM CDT TOTAL CHOLESTEROL mg/dL Desirable <200 Borderline high 200-239 High >=240 TRIGLYCERIDES mg/dL Normal <150 Borderline high 150-199 High 200-499 Very high >=500 HDL CHOLESTEROL mg/dL Low <40 Normal 40-59 Desirable >=60 NON HDL CHOLESTEROL mg/dL Optimal <130 Near Optimal 130-159 Borderline High 160-189 Very High >=190 Calculated LDL mg/dL Optimal <100 Near Optimal 100-129 Borderline High 130-159 High 160-189 Very High >=190 ATPIII Guidelines Reference Ranges for Lipid Panels (NCEP/AMA) Benjy Morrison MD CHEMISTRY ORDERABLES Final Res ult [facility] CLIA# [id number] [address] [place] [address] documented in this encounter Visit Diagnoses Not on filedocumented in this encounter Additional Health Concerns Infection Onset Date Last Indicated Resolved Time COVID-19 08/22/2020 08/22/2020 09/21/2020 8:09 PM PHOSPHATIC FERTILIZER SUPERVISOR documented as of this encounter Care Teams Return Checker Relationship Specialty Start Date End Date Carlos Hilario MD [address] [address] PCP - General Family Practice 03/17/21 documented as of this encounter
--- OUTSIDE RECORDS SUMMARY | 2025-06-16 11:24 | XMS_ITS | Encounter Summary ---
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 (CMS/HCC) Varicose veins of bilateral lower extremities with pain Procedures US VENOUS REFLUX LEFT LEG US VENOUS REFLUX BILATERAL Andrew Verma MD [address] [address] Phone: tel: fax: Referral ID Status Reason Start Date Expiration Date Visits Re quested Visits Authorized [id number] Closed 03/19/2020 04/19/2021 1 1 Encounter Details Date Type Department Care Team (Late st Contact Info) Description 04/13/2020 Ancillary Orders [facility] Vascular Surgery [place] [address] [place] [phone] Andrew Verma MD [address] [place] [phone] Recurrent DVT of left LE while on therapeutic INR; Varicose veins of bilateral lower extremities with pain Social History Tobacco Use Types Packs/Day Years Used Date Smoking Tobacco: Former Cigarettes Q uit: 03/11/2016 Cigars Smokeless Tobacco: Never Alcohol Use Standard Drinks/Week Comments Yes 6 (1 standard drink = 0.6 oz pur e alcohol) 6 pack a day Sex and Gender Information Value Date Recorded Sex Assigned at Not on file Legal Sex Male 3:11 AM MUSICAL INSTRUMENT SUPERVISOR Gender Identity Not on file Sexual Orientation Not on file Occupation Industry Job Start Date Job End Date Not on file Not on file Not on file Not on file COVID-19 Exposure Response Date Recorded In the last month, have you been in contact with someone who was confirmed or suspected to have Coronavirus / COVID-19? No / Unsure 04/13/2020 9:21 AM CDT documented as of this encounter Plan of Treatment Not on file documented as of this encounter Results * US VENOUS REFLUX LEFT LEG (04/13/2020 10:31 AM CDT) Anatomical Region Laterality Modality Lower Extremity Ultrasound 04/13/2020 10:2 1 AM CDT Narrative 04/28/2020 3:30 PM CDT [facility] [address] [place] [id number] Noninvasive Vascular Lab Lower Extremity Vein mapping for Reflux Patient: Lucho Chavez Study ID: US VENOUS REFLUX Gender: M : 1960 Age: 60 Room: Height: Weight: BSA: Pt status: Outpatient Study Date: 04/13/2020 Study Time: 10:21:03 AM BSA: Ordering: Andrew Verma MD, RPVI Interpreting:Andrew Verma MD, ILIA Bench Assembler Operator: Niranjan Poole RVT Indications: Varicose veins. Summary Impression: 1. Study demonstrate extensive chronic venous disease with recanalization and collateralization in the left femoral vein and popliteal vein. There is deep vein reflux in the left common femoral vein, femoral vein, popliteal vein, and tibial veins. 2. There are no areas of acute deep vein thrombosis or superficial venous thrombophlebitis in the left lower extremity. 3. There is superficial venous reflux identified in the left saphenofemoral junction, great saphenous vein, posterior arch varicosity, and anterior tributary varicosity. Study data: Lower extremity vein mapping for reflux. Ethnicity: Ethnicity: white. Location: Vascular laboratory. Patient status: Outpatient. Study status: Routine. Procedure: A vascular evaluation was performed with the patient in the supine position and standing. Image quality was good. Vein mapping: - Left saphenofemoral junction - Reflux greater than 2 sec 6.90mm Depth: 16.60mm - Proximal left greater saphenous - 7.50mm Depth: 18.40mm > 0.5 second reflux - Mid left greater saphenous - 5.40mm Depth: 10.00mm - Distal left greater saphenous - Reflux greater than 2 sec 5.00mm Depth: 8.00mm - Left greater saphenous (calf) - 6.10mm Depth: 5.70mm - Left lesser saphenous - No reflux 4.20mm Depth: 7.50mm - Left anterior tributary - Reflux greater than 2 sec 6.60mm - L posterior arch - Reflux greater than 4 sec 9.60mm [facility] is accredited with the Intersocietal Commission for the Accreditation of Vascular Laboratories (ICAVL) Prepared and Electronically Authenticated Andrew Verma MD, ILIA Confirmed 04/28/2020 15:29 Procedure Note Andrew Verma MD - 04/28/2020 [facility] [address] [place] [id number] Noninvasive Vascular Lab Lower Extremity Vein mapping for Reflux Patient: Lucho Chavez Study ID: US VENOUS REFLUX Gender: M : 1960 Age: 60 Room: Height: Weight: BSA: Pt status: Outpatient Study Date: 04/13/2020 Study Time: 10:21:03 AM BSA: Ordering: Andrew Verma MD, ILIA Interpreting:Andrew Verma MD, ILIA Bench Assembler Operator: Niranjan Poole RVT Indications: Varicose veins. Summary Impression: 1. Study demonstrate extensive chronic venous disease with recanalization and collateralization in the left femoral vein and popliteal vein. There is deep vein reflux in the left common femoral vein, femoral vein, popliteal vein, and tibial veins. 2. There are no areas of acute deep vein thrombosis or superficial venous thrombophlebitis in the left lower extremity. 3. There is superficial venous reflux identified in the left saphenofemoral junction, great saphenous vein, posterior arch varicosity, and anterior tributary varicosity. Study data: Lower extremity vein mapping for reflux. Ethnicity: Ethnicity: white. Location: Vascular laboratory. Patient status: Outpatient. Study status: Routine. Procedure: A vascular evaluation was performed with the patient in the supine position and standing. Image quality was good. Vein mapping: - Left saphenofemoral junction - Reflux greater than 2 sec 6.90mm Depth: 16.60mm - Proximal left greater saphenous - 7.50mm Depth: 18.40mm > 0.5 second reflux - Mid left greater saphenous - 5.40mm Depth: 10.00mm - Distal left greater saphenous - Reflux greater than 2 sec 5.00mm Depth: 8.00mm - Left greater saphenous (calf) - 6.10mm Depth: 5.70mm - Left lesser saphenous - No reflux 4.20mm Depth: 7.50mm - Left anterior tributary - Reflux greater than 2 sec 6.60mm - L posterior arch - Reflux greater than 4 sec 9.60mm [facility] is accredited with the Intersocietal Commission for the Accreditation of Vascular Laboratories (ICAVL) Prepared and Electronically Authenticated Andrew Verma MD, RPVI Confirmed 04/28/2020 15:29 us Andrew Verma MD ORDERABLES Final Result documented in this encounter Visit Diagnoses Diagnosis Recurrent DVT of left LE while on therapeutic INR Varicose veins of bilateral lower extremities with pain Recurrent DVT of left LE while on therapeutic INR Varicose veins of bilateral lower extremities with pain documented in this encounter Additional Health Concerns Infection Onset Date Last Indicated Resolved Time COVID-19 08/22/2020 08/22/2020 09/21/2020 8:09 PM MUSICAL INSTRUMENT SUPERVISOR documented as of this encounter Care Teams Pmp Certified Project Manager Relationship Specialty Start Date End Date Carlos Hilario MD [address] [facility] [address] [place] [address] PCP - General Family Practice 03/17/21 documented as of this encounter
--- OUTSIDE RECORDS SUMMARY | 2025-06-16 11:24 | XMS_ITS | Clinical Summary ---
Author Organization [facility] Address [address] [place] [address] Care Team Providers Care Windows Phone Developer Name Role Phone Zehra Gottlieb MD Primary Care Provider [phone] Allergies Active Allergy Reactions Criticality Noted Date Comments Colchicine Other (See Comments) 10/02/2015 Uri symptoms Medications nitroglycerin (NITROSTAT) 0.4 mg Tablet, Sublingual Place 1 Tablet (0.4 mg) under tongue every 5 minutes as needed for Chest Pain. 9 Active MEN'S MULTI-VITAMIN ORAL Take by mouth. 1 Active CALCIUM-MAGNESIUM -ZINC ORAL Take 3 Tablet by mouth daily. 6 Active brimonidine (ALPHAGAN P) 0.15 % solution INSTILL 1 DROP INTO LEFT EYE THREE TIMES DAILY 4 Active dorzolamide-timol oL (COSOPT) 22.3-6.8 mg/mL solution instill 1 drop into each eye twice daily 4 Active Rocklatan 0.02-0.005 % solution INSTILL 1 DROP INTO EACH EYE ONCE EVERY NIGHT AT BEDTIME 4 Active rivaroxaban (Xarelto) 20 mg TabletIndications :Factor V Leiden mutation Take 1 Tablet (20 mg) by mouth daily with supper. 100 Tablet 3 4 Active losartan (COZAAR) 100 mg tabletIndications :Essential hypertension Take 1 Tablet (100 mg) by mouth daily. 100 Tablet 3 5 Active baclofen (LIORESAL) 10 mg tablet take 1 tablet by mouth three times daily as needed for pain 5 Active metoprolol succinate (TOPROL XL) 25 mg Extended Release 24 hour tabletIndications :Essential hypertension Take 1 Tablet (25 mg) by mouth daily. 100 Tablet 1 5 Active fluconazole (DIFLUCAN) 100 mg tablet TAKE 2 TABLETS BY MOUTH ON DAY 1 THEN ONE TABLET DAILY. 5 Active ofloxacin (FLOXIN) 0.3 % Drops INSTILL 4 DROPS INTO RIGHT EAR TWICE DAILY FOR 7 DAYS 5 Active levoFLOXacin (LEVAQUIN) 500 mg tabletIndications :Pneumonia of right lung due to infectious organism, unspecified part of lung Take 1 Tablet (500 mg) by mouth daily for 7 days. 7 Tablet 5 06/19/20 Active Active Problems Problem Noted Date Diagnosed Date Essential hypertension 12/13/2021 History of stroke without residual deficits 02/24 History of TIA (transient ischemic attack) and s troke 06/18/2020 Personal history of DVT (deep vein thrombosis) 0 06/18/2020 Reactive thrombocytosis 06/17/2020 Postphlebitic syndrome 04/13/2020 Mixed hyperlipidemia 06/16/2017 Depression with anxiety 10/07/2016 Alcohol dependence, daily use 03/02/2016 Anticoagulated by Xeralto 03/02/2016 Factor V Leiden mutation 11/04/2014 Transient neurological sympt oms - vertigo, confusion, flushed feeling for about 2 hours on 02/29/16 Resolved Problems Problem Noted Date Diagnosed Date Resolved Date Cerebrovascular accident (CV A) due to thrombosis of cerebral artery 03/04/2016 03/18/2021 Cigar smoker 03/02/2016 06/18/2020 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 [address] [facility] [place] [phone] CHEST WO CONTRAST 06/11/2025 2:15 PM CDT - 06/11/2025 11:59 PM CDT Hospital Encounter [facility] CT Scan [place] [address] [place] [address] Arcelia Whaley FNP Discharge Disposition: Home or Self Care 06/11/2025 10:40 AM CDT Office Visit [address] [place] [address] Arcelia Whaley FNP Shortness of breath (Primary Dx); Choking sensation; Encounter for colorectal cancer screening 06/03/2025 10:00 AM CDT Office Visit [address] [place] [address] Arcelia Whaley FNP Osteoarthritis of cervical spine, unspecified spinal osteoarthritis complication status (Primary Dx); Choking sensation; Shortness of breath 05/30/2025 Telephone [facility] [address] [facility] [address] [place] [phone] Zehra Gottlieb MD Patient Communication; Medication Refill 05/27/2025 10:57 AM CDT - 05/27/2025 11:59 PM CDT Hospital Encounter [facility] CT Scan [place] [address] [facility] [address] [place] [address] Arcelia Whaley FNP Discharge Disposition: Home or Self Care 05/27/2025 8:00 AM CDT Office Visit [address] [place] [address] Arcelia Whaley FNP Choking sensation (Primary Dx); Declined influenza vaccine; Osteoarthritis of cervical spine, unspecified spinal osteoarthritis complication status 05/27/2025 External Device Data [place] ABSTRACTION Provider, Abstract 05/20/[address] [facility] [address] Arcelia Whaley FNP 05/13/2025 External Device Data [place] ABSTRACTION Provider, Abstract 05/13/2025 External Device Data [place] ABSTRACTION Provider, Abstract 04/30/2025 External Device Data [place] ABSTRACTION Provider, Abstract 04/29/2025 External Device Data [place] ABSTRACTION Provider, Abstract 04/09/2025 External Device Data [place] AB[place]CTION Provider, Abstract 04/09/2025 External Device Data [place] ABSTRACTION Provider, Abstract from Last 3 Months Immunizations Immunization Administration Dates Next Due (ADACEL/BOOSTRIX)(10 YR UP) TDAP VACCINE, 0.5ML, IM 09/20/2022,05/30/2017 (INFANRIX)(6 WKS-6 YRS) DIPT HERIA, TETANUS TOXOIDS, AND ACCELLULAR PERTUSSIS VACCINE (DTAP), 0.5 ML IM 05/30/2017 (PFIZER)(12 YR UP) COVID-19 VACCINE - EMERGENCY USE AUTHORIZATION, MRNA, [id number](PF) 30 MCG/0.3 ML IM SUSP 09/02/2021,01/22/2021,01/01/2021 INFLUENZA VACCINE HIGH DOSE TRIVALENT SPLIT VIRUS, (65 YR UP), 0.5ML (PF), IM 06/06/2024 Influenza Seasonal Unspecifi ed Formulation IM 07/07/2022,06/16/2017,07/14/2016,2013 Family History Medical History Relation Name Comments Heart Failure Father Diabetes Mother Hypertension Mother Relation Name Status Comments Father Mother Social History Tobacco Use Types Packs/Day Years Used Date Smoking Tobacco: Former Cigarettes Q uit: 03/11/2016 Smokeless Tobacco: Never Tobacco Cessation:Counseling Given: No Alcohol Use Standard Drinks/Week Comments Yes 6 (1 standard drink = 0.6 oz pur e alcohol) Feeling Safe Answer Date Recorded Are you in a relationship wi th someone who hurts you emotionally and/or physically? 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 [address] [facility] [place] [phone] Arcelia Whaley, STUART [address] [facility] [place] [address] 07/02/2025 10:00 AM CDT Office Visit [facility] Neuro[facility] [address] [place] [address] Valerie Mills, DAVON [address] [place] [address] Health Maintenance Due Date Last Done Comments FIT/ DNA Q 3 YEARS (AUTO ORDER) 01/30/1976 FIT/FOBT Q 1 YEAR (AUTO ORDER) 01/30/1976 FLEX SIG/CT COLONOGRAPHY Q 5 YEARS (AUTO ORDER) 01/30/1976 PNEUMOCOCCAL VACCINE 50+ YEARS (1 of 2 - PCV) 1977 COLORECTAL CANCER SCREENING (AUTO ORDER) 2003 COLORECTAL SCREENING 2003 Colorectal Cancer Screening (AUTO ORDER) 2003 Colorectal Cancer Screening 2003 FIT-DNA Q 3 years 2003 FIT/FOBT Q 1 year 2003 Flex Sig/CT Colonography Q 5 years 2003 ZOSTER VACCINE (1 of 2) 01/30/2008 Pre-Diabetes and Diabetes Screening 06/06/2019 06/06/2016 COVID-19 Vaccine ( season) 2025 09/02/2021, 01/22/2021, 01/01/2021 Medicare Advantage ([place]) Preventative Visit/Annual Wellness Visit 05/27/2026 06/06/2024, 03/17/2023, 07/07/2022, Additional history exists Postponed from 09/25/2024 (Therapeutic Plan Prohibits) DTAP/TDAP/TD VACCINES (4 - Td or Tdap) 09/20/2032 09/20/2022, 05/30/2017, 05/30/2017 RSV VACCINE (60+ or ) (1 - 1-dose 75+ series) 2033 Abdominal Aortic Aneurysm (AAA) Screening Completed 06/19/2020 INFLUENZA VACCINE Completed 05/27/2025, , 07/07/2022, Additional history exists Procedures Procedure Name Priority Date/Time Associated Diagnosis Comments CT CHEST WO CONTRAST Stat 06/11/2025 2:42 PM CDT Shortness of breath CT CERVICAL SPINE WO CONTRAST Stat 05/27/2025 11:05 AM CDT Choking sensation Osteoarthritis of cervical spine, unspecified spinal osteoarthritis complication status US ABDOMEN COMPLETE Stat 06/19/2020 12:00 AM CDT Traumatic ecchymosis of abdominal wall, subsequent encounter Cellulitis of abdominal wall GLUCOSE FASTING Routine 06/06/2016 8:40 AM CDT from Last 3 Months or Most Recently Relevant to Health Maintenance Results * CT CHEST WO CONTRAST (06/11/2025 [...] suggestive of an infectious/inflammatory process. Arcelia Whaley [facility] CT ORDERABLES Final Result * CT CERVICAL SPINE WO CONTRAST (05/27/2025 11:05 AM CDT) Anatomical Region Laterality Modality Spine Computed Tomogra phy 05/27/2025 10:5 1 AM CDT Impressions 05/27/2025 12:27 PM CDT IMPRESSION: No acute cervical spine fracture. Multilevel degenerative changes. Prominent anteriorly projecting osteophytes C4-C5, C5-C6 and C6-C7. If globus sensation persists, consider a dedicated fluoroscopic esophagram. Narrative 05/27/2025 12:27 PM CDT EXAM: CT CERVICAL SPINE WO CONTRAST DATE/TIME OF EXAM: 05/27/2025 11:05 AM REASON FOR STUDY: Neck pain, chronic, degenerative changes on xray, choking episodes DIAGNOSIS: Choking sensation; Osteoarthritis of cervical spine, unspecified spinal osteoarthritis complication status COMPARISON: None TECHNIQUE: CT cervical spine without intravenous contrast. Coronal and sagittal reformatted images were provided. FINDINGS: BONES: No acute cervical spine fracture. Bone demineralization. ALIGNMENT: Mild anterolisthesis C3 on C4 and C4 on C5 and C7 on T1. DEGENERATIVE CHANGE: Multilevel disc space narrowing, uncinate and facet arthropathy. Degenerative changes are noted at the craniocervical junction. C2-C3: Facet arthropathy. No significant bony canal or foraminal narrowing. C3-C4: Uncinate and facet arthropathy. Moderate bilateral foraminal narrowing. No significant bony canal narrowing. C4-C5: Prominent anterior osteophyte formation. Uncinate and facet arthropathy. Mild bilateral bony foraminal narrowing. C5-C6: Prominent anteriorly projecting osteophytes. Severe intervertebral disc space narrowing. Uncinate and facet arthropathy. Severe left and moderate right foraminal narrowing. No significant canal narrowing. C6-C7: Intervertebral disc space narrowing. Prominent anteriorly projecting osteophytes. Uncinate and facet arthropathy. Mild bilateral foraminal stenosis. SOFT TISSUES: No prevertebral soft tissue swelling. Atherosclerotic calcification within the aorta. OTHER: Visualized lung apices are clear. Procedure Note Hawa Bruce MD - 05/27/2025 EXAM: CT CERVICAL SPINE WO CONTRAST DATE/TIME OF EXAM: 05/27/2025 11:05 AM REASON FOR STUDY: Neck pain, chronic, degenerative changes on xray, choking episodes DIAGNOSIS: Choking sensation; Osteoarthritis of cervical spine, unspecified spinal osteoarthritis complication status COMPARISON: None TECHNIQUE: CT cervical spine without intravenous contrast. Coronal and sagittal reformatted images were provided. FINDINGS: BONES: No acute cervical spine fracture. Bone demineralization. ALIGNMENT: Mild anterolisthesis C3 on C4 and C4 on C5 and C7 on T1. DEGENERATIVE CHANGE: Multilevel disc space narrowing, uncinate and facet arthropathy. Degenerative changes are noted at the craniocervical junction. C2-C3: Facet arthropathy. No significant bony canal or foraminal narrowing. C3-C4: Uncinate and facet arthropathy. Moderate bilateral foraminal narrowing. No significant bony canal narrowing. C4-C5: Prominent anterior osteophyte formation. Uncinate and facet arthropathy. Mild bilateral bony foraminal narrowing. C5-C6: Prominent anteriorly projecting osteophytes. Severe intervertebral disc space narrowing. Uncinate and facet arthropathy. Severe left and moderate right foraminal narrowing. No significant canal narrowing. C6-C7: Intervertebral disc space narrowing. Prominent anteriorly projecting osteophytes. Uncinate and facet arthropathy. Mild bilateral foraminal stenosis. SOFT TISSUES: No prevertebral soft tissue swelling. Atherosclerotic calcification within the aorta. OTHER: Visualized lung apices are clear. IMPRESSION: No acute cervical spine fracture. Multilevel degenerative changes. Prominent anteriorly projecting osteophytes C4-C5, C5-C6 and C6-C7. If globus sensation persists, consider a dedicated fluoroscopic esophagram. us Arcelia MARTINEZP CT ORDERABLES Final Result * US ABDOMEN COMPLETE (06/19/2020 12:00 AM CDT) Anatomical Region Laterality Modality Abdomen Other us Arcelia MARTINEZP US ORDERABLES Final Result * GLUCOSE FASTING (06/06/2016 8:40 AM CDT) GLUCOSE-FASTIN G 83 70 - 99 mg/dL 06/06/2016 1:27 PM CDT [facility] [employer] [facility] Blood Collection / Unknown 06/06/2016 8:40 AM CDT 06/06/2016 12:07 PM CDT Narrative [facility] [employer] [facility] - 06/06/2016 1:27 PM CDT <100 mg/dl: Normal Fasting Glucose 100-125 mg/dl: Impaired Fasting Glucose >/=126 mg/dl: Provisional diagnosis of Diabetes The diagnosis must be confirmed. Benjy Morrison MD CHEMISTRY ORDERABLES Final Res ult [facility] [id number] [address] [place] [address] [facility] CLIA # [id number] [address] [facility] [place] [address] from Last 3 Months or Most Recently Relevant to Health Maintenance Insurance BCBS MEDICARE HMO * Guarantor: [id number] MAGI Account Type Relation to Patient Date of Phone Billing Address Workers Comp Employer [address] [address] [facility] Advance Directives For more information, please contact: [phone] * Full Code (Latest Code Status on File) Date Activated Date Inactivated Comments 03/17/2023 1:27 PM 02/13/2025 10:02 AM Care Teams Windows Phone Developer Relationship Specialty Start Date End Date Zehra Gottlieb MD [address] [facility] [address] [place] [address] PCP - General Family Practice 11/15/23
--- OUTSIDE RECORDS SUMMARY | 2025-06-16 11:24 | XMS_ITS | Clinical Summary ---
Author Organization [facility] Address [address] [place] [address] Care Team Providers Care Mental Health Director Name Role Phone Carlos Hilario MD Primary Care Provider [phone] [phone] Allergies Active Allergy Reactions Criticality Noted Date Comments Colchicine Other (See Comments) 10/02/2015 Uri symptoms Medications [id number] INC ORAL Take 3 Tablet by mouth daily. Active aspirin (ECOTRIN EC) 81 mg Tablet, Delayed Release (E.C.) Take 81 mg by mouth daily with breakfast. Active nitroglycerin (NITROSTAT) 0.4 mg Tablet, Sublingual Place 1 Tablet (0.4 mg) under tongue every 5 minutes as needed for Chest Pain. Active OTHER Normal saline 500ml bottle. Use to flush/cleans e wound daily. 500 mL 6 0 Active rivaroxaban (Xarelto) 20 mg Tablet Take 1 Tablet (20 mg) by mouth daily with supper. 30 Tablet 1 Active atorvastatin (LIPITOR) 40 mg tabletIndications:M ixed hyperlipidemia Take 1 Tablet (40 mg) by mouth daily at bedtime. 90 Tablet 1 1 Active losartan (COZAAR) 50 mg tablet TAKE 1 TABLET BY MOUTH EVERY DAY 90 Tablet 1 1 Active MEN'S MULTI-VITAMIN ORAL Take by mouth. Active Active Problems Problem Noted Date Diagnosed Date History of stroke without residual deficits 02/24 History of TIA (transient ischemic attack) and s troke 06/18/2020 Personal history of DVT (deep vein thrombosis) 0 06/18/2020 Reactive thrombocytosis 06/17/2020 Postphlebitic syndrome 04/13/2020 Mixed hyperlipidemia 06/16/2017 Depression with anxiety 10/07/2016 Anticoagulated by Xeralto 03/02/2016 Alcohol dependence, daily use 03/02/2016 Recurrent DVT of left LE while on therapeutic IN R 02/05/2016 Factor V Leiden mutation 11/04/2014 Transient neurological sympt oms - vertigo, confusion, flushed feeling for about 2 hours on 02/29/16 Resolved Problems Problem Noted Date Diagnosed Date Resolved Date Cerebrovascular accident (CV A) due to thrombosis of cerebral artery 03/04/2016 03/18/2021 Cigar smoker 03/02/2016 06/18/2020 Cigarette dependence 10/02/2015 020 DVT (deep venous thrombosis) 11/08/2012 11/04/2014 Immunizations Immunization Administration Dates Next Due (ADACEL/BOOSTRIX)(10 YR UP) TDAP VACCINE, 0.5ML, IM 05/30/2017 (INFANRIX)(6 WKS-6 YRS) DIPT HERIA, TETANUS TOXOIDS, AND ACCELLULAR PERTUSSIS VACCINE (DTAP), 0.5 ML IM 05/30/2017 (PFIZER)(12 YR UP) COVID-19 VACCINE - EMERGENCY USE AUTHORIZATION, MRNA, [id number](PF) 30 MCG/0.3 ML IM SUSP 01/22/2021,01/01/2021 Influenza Seasonal Unspecifi ed Formulation IM 06/16/2017,07/14/2016,07/15/2014 Family History Medical History Relation Name Comments [...] on file 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 Gender Identity Not on file Sexual Orientation Not on file Occupation Industry Job Start Date Job End Date Not on file Not on file Not on file Not on file Last Filed Vital Signs Vital Sign Reading Time Taken Comments Blood Pressure 150/64 03/17/2021 11:01 AM CDT Pulse 92 03/17/2021 11:01 AM CDT Temperature 36.8 C (98.2 F) 03/17/2021 11:01 AM CDT Respiratory Rate 8 03/17/2021 11:0 1 AM CDT Oxygen Saturation 97% 03/17/2021 11: 01 AM CDT Inhaled Oxygen Concentration - - Weight 82.5 kg (181 lb 12.8 oz) 021 11:01 AM CDT Height 170.2 cm (5' 7 ) 03/17/2021 11:0 1 AM CDT Body Mass Index 28.47 03/17/2021 11:01 AM CDT Plan of Treatment Health Maintenance Due Date Last Done Comments PNEUMOCOCCAL VACCINE 50+ YEA RS (1 of 2 - PCV) 1977 COLORECTAL SCREENING 2003 Colorectal Cancer Screening 2003 FIT-DNA Q 3 years 2003 FIT/FOBT Q 1 year 2003 Flex Sig/CT Colonography Q 5 years 2003 ZOSTER VACCINE (1 of 2) 01/30/2008 Pre-Diabetes and Diabetes Screening 06/06/2019 06/06/2016, 08/30/2002, 07/31/2002 Preventative Visit- Commercial 09/25/2024 1 , 09/11/2019, 03/14/2018, Additional history exists INFLUENZA VACCINE (#1) 2025 7, 07/14/2016, 07/15/2014 COVID-19 Vaccine (3 - 2024-2 6 season) 2025 01/22/2021, 01/01/2021 DTAP/TDAP/TD VACCINES (3 - T d or Tdap) 05/30/2027 05/30/2017, 05/30/2017 RSV VACCINE (60+ or ) (1 - 1-dose 75+ series) 2033 Procedures Procedure Name Priority Date/Time Associated Diagnosis Comments GLUCOSE FASTING Routine 06/06/2016 8:40 AM CDT from Last 3 Months or Most Recently Relevant to Health Maintenance Results * GLUCOSE FASTING (06/06/2016 8:40 AM CDT) GLUCOSE-FASTIN G 83 70 - 99 mg/dL 06/06/2016 1:27 PM CDT [facility] Blood Collection / Unknown 06/06/2016 8:40 AM CDT 06/06/2016 12:07 PM CDT Narrative [facility] - 06/06/2016 1:27 PM CDT <100 mg/dl: Normal Fasting Glucose 100-125 mg/dl: Impaired Fasting Glucose >/=126 mg/dl: Provisional diagnosis of Diabetes The diagnosis must be confirmed. us Benjy Morrison MD CHEMISTRY ORDERABLES Final Res ult [facility] CLIA# [id number] [address] [place] [address] from Last 3 Months or Most Recently Relevant to Health Maintenance Insurance [facility] Advance Directives For more information, please contact: [phone] * Full Code (Latest Code Status on File) Date Activated Date Inactivated Comments 03/02/2016 1:40 PM 03/04/2016 11:38 AM Care Teams Mental Health Director Relationship Specialty Start Date End Date Carlos Hilario MD [address] [address] PCP - General Family Practice 03/17/21
--- OUTSIDE RECORDS SUMMARY | 2025-06-16 11:24 | XMS_ITS | Encounter Summary ---
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 Forging Press Operator Name Role Phone Carlos Hilario MD Primary Care Provider [phone] [phone] Reason for Referral * Outpatient Services (Routine) - Closed Specialty Diagnoses / Procedures Referred By Contac t Referred To Contact Radiology Diagnoses Thromboembolism (CMS/HCC) Procedures CT ABDOMEN PELVIS W WO CONTRAST Johnathan Santos MD Phone: tel: fax: [facility] [place] [address] [place] [address] Phone: tel: fax: Referral ID Status Reason Start Date Expiration Date V isits Requested Visits Authorized [id number] Closed MTN View CTS to Schedule (SGF) 03/22/2016 04/22/2017 1 1 * Outpatient Services (Routine) - Closed Specialty Diagnoses / Procedures Referred By Contac t Referred To Contact Radiology Diagnoses Thromboembolism (CMS/HCC) Procedures CT CHEST W CONTRAST Johnathan Santos MD Phone: tel: fax: [facility] [place] [address] [place] [address] Phone: tel: fax: Referral ID Status Reason Start Date Expiration Date V isits Requested Visits Authorized [id number] Closed MTN View CTS to Schedule (SGF) 03/22/2016 04/22/2017 1 1 Encounter Details Date Type Department Care Team (Latest Contact Info) Description 03/22/2016 Ancillary Orders Susi Hancock Centralized Scheduling [address] [place] [address] Johnathan Santos MD [address] [place] [id number] Thromboembolism (CMS/HCC) (Primary Dx) Social History Tobacco Use Types Packs/Day Years Used Date Smoking Tobacco: Former Cigarettes Cigars Smokeless Tobacco: Never Alcohol Use Standard Drinks/Week Comments Yes 6 (1 standard drink = 0.6 oz pur e alcohol) 6 pack a day Sex and Gender Information Value Date Recorded Sex Assigned at Not on file Legal Sex 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 Normal CT evaluation of the abdomen and pelvis. 2. Incidental demonstration of a small right renal cyst. [id number] Narrative 04/01/2016 3:30 PM CDT Exam: CT ABDOMEN PELVIS W WO CONTRAST Date/Time of Exam: 04/01/2016 2:24 PM Reason For Exam: Thromboembolism. Findings: CT of the abdomen and pelvis was performed without the use of intravenous contrast. Lung bases are clear. Heart size is normal. Liver is smooth and homogeneous without evidence of focal infiltrate or ductal dilatation. Gallbladder is present and distended. Pancreas appears to be uniform and normal. Adrenal glands are unremarkable as is the spleen. There is no evidence of abdominal ascites. Kidneys appear to be anatomically intact. Pathologic soft tissue masses or calcifications are not identified. Periaortic or pericaval adenopathy is not evident. There is no evidence of aneurysm formation. Iliac dion chain appears to be unremarkable. There is prostate calcification. Diverticulitis or pericolonic abscess formation is not evident. Pelvic ascites is not evident. us Johnathan Santos MD CT ORDERABLES Final Result * CT CHEST W CONTRAST (04/01/2016 2:18 PM CDT) Anatomical Region Laterality Modality Chest Computed Tomogra phy 04/01/2016 2:18 PM CDT Impressions 04/04/2016 2:12 PM CDT IMPRESSION: 1. Normal CT evaluation of the chest, abdomen and pelvis. [id number] Narrative 04/04/2016 2:12 PM CDT Exam: CT CHEST W CONTRAST Date/Time of Exam: 04/01/2016 2:18 PM Reason For Exam: Thromboembolism. Findings: Chest, abdomen and pelvis was performed utilizing intravenous contrast. 100 mL of Optiray-320 was utilized for vessel opacification. Pathologic parenchymal nodularity or airspace pneumonia is not evident. There is no pleural effusion. Thyroid gland appears to be unremarkable. Pathologic hilar or mediastinal adenopathy is not evident and endobronchial abnormalities are not present. Pulmonary vessels appear to be unremarkable. Heart size is normal without evidence of pericardial effusion. There is no evidence of aneurysm formation. Liver is smooth and homogeneous with the exception of a low density in the left lobe of the liver probably representing hepatic cysts. Ductal dilatation is not evident. Gallbladder is present and distended. Pancreas appears to be uniform and normal. Spleen is unremarkable. Small low-attenuation density is seen in the left adrenal gland. This probably represents an adenoma or lipoma. Retrocrural adenopathy is not identified. Kidneys are functionally and anatomically intact with the exception of a right renal cyst. There is no evidence of hydroureter or hydronephrosis. Ureters take an nonobstructive course to the level of the bladder. Psoas muscles appear to be symmetric and normal bilaterally. Diverticulitis or pericolonic abscess formation is not identified. Right and left femoral arteries are widely patent. Inguinal adenopathy is not evident. 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
[2025-06-16 11:31] VITALS: BP 167/92; PULSE 113; RESP 24; TEMP 36.6; O2SAT 87; BMI 28.0
--- NOTE | 2025-06-16 11:34 | ECG_ITS ---
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 Measurements Intervals [place] Rate: 112 P: 72 OK: 132 QRS: -40 QRSD: 78 T: 70 QT: 322 QTc: 441 Interpretive Statements SINUS TACHYCARDIA POSSIBLE LEFT ATRIAL ENLARGEMENT [-0.1mV P-WAVE IN V1/V2] LEFT AXIS DEVIATION [QRS AXIS < -30] Compared to ECG 11/14/2016 07:24:43 Sinus rhythm no longer present Short OK interval no longer present ST (T wave) deviation no longer present Electronically Signed On 06-16-2025 20:20:47 CDT by Favian Lechuga M.D. [id number]
--- NOTE | 2025-06-16 11:44 | XR_ITS ---
WS: [id number] Exam: XR chest 1V portable [id number] Date/Time of Exam: 06/16/2025 11:46 AM Reason For Exam: dyspnea/cough Comparison 11/14/2016. Lungs are clear and fully expanded. Normal cardiomediastinal silhouette and bony structures. No pleural effusion. XR/XR chest 1V portable [id number] IMPRESSION: 1. Normal chest.
[2025-06-16 12:07] LABS: Hematocrit 44.2 % (37-53); Hemoglobin 15.40 g/dL (11.27-16.99); Mean Corpuscular HGB Conc 34.8 g/dL (30-55); Mean Corpuscular Hemoglobin 32.6 pg (27-33); Mean Corpuscular Volume 93.6 fl (82-101); Nucleated Red Blood Cells % 0 %; Platelet Count 312 10^3/cmm (157-399); Red Blood Count 4.72 10^6/uL (3.85-5.65); White Blood Count 12.34 10^3/uL (3.29-11.43)
[2025-06-16 12:26] LABS: Troponin(5th) Baseline 21 ng/L (0-15)
--- NOTE | 2025-06-16 12:30 | W.ED.SOB ---
HPI - SOB/Dyspnea General: Chief Complaint: Shortness of Breath/Dyspnea Stated Complaint: sob Time Seen by Provider: 06/16/25 11:39 History of Present Illness: HPI Narrative: 65-year-old male presents to the emergency room complaining of shortness of breath patient has increasing shortness of breath with nonproductive cough for the last several weeks is getting worse. He has conversational and exertional dyspnea without any chest pain. No productive cough no fever. Patient is not a smoker he is not currently on any medications for COPD. Associated symptoms: Deny abdominal pain, chest pain or fever(s) Related Data Home Medications ?Medication ?Instructions ?Recorded ?Confirmed calcium 333 mg-vit D3 200 1 tab PO DAILY 06/16/25 06/16/25 unit-magnesium 133 mg-zinc 5 mg tablet levofloxacin 500 mg tablet 700 mg PO DAILY 06/16/25 06/16/25 losartan 100 mg tablet 100 mg PO DAILY 06/16/25 06/16/25 metoprolol succinate 25 mg 25 mg PO DAILY 06/16/25 06/16/25 tablet,extended release 24 hr multivitamin with minerals-folic 1 tab PO DAILY 06/16/25 06/16/25 acid 400 mcg-lycopene 370 mcg tablet (One-A-Day Men's 50 Plus) rivaroxaban 20 mg tablet (Xarelto) 20 mg PO DAILY 06/16/25 06/16/25 Allergies Allergy/AdvReac Type Severity Reaction Status Date / Time amlodipine Allergy ADR/ALGY-Fl Verified 06/16/25 11:35 ushing colchicine Allergy ADR/ALGY-Fl Verified 06/16/25 11:35 ushing Review of Systems Const: Denies: fever(s) or chills Card: Denies: chest pain Resp: Denies: dyspnea GI: Denies: abdominal pain : Denies: dysuria, urinary frequency or urinary urgency Musc: Denies: neck pain or back pain Skin/Breast: Denies: rash Physical Exam Const: COMMON NORMALS: no acute distress GENERAL APPEARANCE: cooperative and comfortable ORIENTATION/CONSCIOUSNESS: Yes awake, Yes oriented to person, Yes oriented to place and Yes oriented to time HENMT: COMMON NORMALS: normocephalic, atraumatic and hearing grossly normal bilaterally HEAD & SCALP: normocephalic and atraumatic Resp: AUSCULTATION: wheezes Cardio: COMMON NORMALS: regular rate, regular rhythm and No murmurs present (Cardio) RATE: regular rate RHYTHM: regular rhythm GI: COMMON NORMALS: Soft to palpation and No hepatosplenomegaly present AUSCULTATION: Yes normoactive bowel sounds PALPATION: Yes Soft to palpation, No Tenderness to palpation present (GI), No Guarding due to palpation present (GI) and Yes No hepatosplenomegaly present Extremity: COMMON NORMALS: normal to inspection, capillary refill normal, no clubbing, cyanosis or edema, no calf tenderness and no pedal edema Neuro: SENSORIUM/ORIENTATION: Yes oriented to person, Yes oriented to place and Yes oriented to time Skin: COMMON NORMALS: no rashes or lesions noted GENERAL SKIN EXAM: no rashes or lesions noted Course Vital Signs: Vital signs: Vital Signs Temperature 97.8 F 06/16/25 11:31 Pulse Rate 94 06/16/25 15:21 Respiratory Rate 17 06/16/25 14:45 Blood Pressure 160/75 06/16/25 15:21 Pulse Oximetry 95 06/16/25 15:21 Oxygen Delivery Me thod Nasal Cannula 06/16/25 14:45 Oxygen Flow Rate 5 06/16/25 14:45 MDM - SOB/Dyspnea Medical Decision Making Patient has stable hyperinflation of his lung. He did have some improvement with nebulizers he is now requiring oxygen supplementation which he normally does not will admit for aggressive pulmonary toilet further evaluation his BNP is slightly elevated may need some cardiac evaluation as well. I did titrate him up to 5 L/min on nasal cannula. His white count is slightly elevated we did do a D-dimer which was negative. Medical Records I reviewed the patient's medical records. Lab Data I reviewed the patient's lab results. 06/16/25 12:03 06/16/25 12:03 Labs/Radiology: Radiology Impressions Chest X-Ray 06/16/25 11:44 IMPRESSION: 1. Normal chest. Laboratory Results WBC 12.34 10^3/uL (3.29-11.43) H 06/16/25 12:03 RBC 4.72 10^6/uL (3.85-5.65) 06/16/25 12:03 Hgb 15.40 g/dL (11.27-16.99) 06/16/25 12:03 Hct 44.2 % (37-53) 06/16/25 12:03 MCV 93.6 fl (82-101) 06/16/25 12:03 MCH 32.6 pg (27-33) 06/16/25 12:03 MCHC 34.8 g/dL (30-55) 06/16/25 12:03 RDW 11.6 % (12.1-15.1) L 06/16/25 12:03 Plt Count 312 10^3/cmm (157-399) 06/16/25 12:03 MPV 9.6 fL (7.4-10.4) 06/16/25 12:03 Neut % (Auto) 89.4 % 06/16/25 12:03 Lymph % (Auto) 4.9 % 06/16/25 12:03 [place] % (Auto) 4.9 % 06/16/25 12:03 Eos % (Auto) 0.1 % 06/16/25 12:03 Baso % (Auto) 0.2 % 06/16/25 12:03 Neut # (Auto) 11.03 10^3/uL (1.8-7.7) H 06/16/25 12:03 Lymph # (Auto) 0.6 10^3/uL (0.8-4.8) L 06/16/25 12:03 [place] # (Auto) 0.6 10^3/uL (0.2-0.9) 06/16/25 12:03 Eos # (Auto) 0.0 10^3/uL (0.0-0.8) 06/16/25 12:03 Baso # (Auto) 0.0 10^3/uL (0.0-0.1) 06/16/25 12:03 Nucleated RBC % (auto) 0 % 06/16/25 12:03 Nucleated RBCs # 0.0 /100WBC 06/16/25 12:03 D-Dimer 0.46 ug/mLFEU (0-0.59) 06/16/25 12:03 Specimen Type Arterial 06/16/25 13:02 Sample Site Radial, right 06/16/25 13:02 ABG pH 7.41 (7.35-7.45) 06/16/25 13:02 ABG pCO2 40.6 mmHg (35-45) 06/16/25 13:02 ABG pO2 60.9 mmHg (80.0-100.0) L 06/16/25 13:02 ABG PO2/FiO2 Ratio 234 06/16/25 13:02 ABG HCO3 25.9 mmol/L (22-26) 06/16/25 13:02 ABG O2 Saturation 91.2 06/16/25 13:02 ABG Base Excess 1.2 mmol/L (-2.0-2.0) 06/16/25 13:02 Kev Test Pos 06/16/25 13:02 A-a O2 Gradient 9.6 mmHg (5-10) 06/16/25 13:02 Hematocrit 49.9 % (42-52) 06/16/25 13:02 Hgb O2 Saturation 90.0 % (95-100) L 06/16/25 13:02 Carboxyhemoglobin 1.4 %THgb (0.4-20.1) 06/16/25 13:02 Methemoglobin 0.0 % (0.4-1.5) L 06/16/25 13:02 Total Hemoglobin 16.3 g/dL (14-18) 06/16/25 13:02 Sodium 130.0 mmol/L (131-143) L 06/16/25 13:02 Potassium 4.2 mmol/L (3.5-5.0) 06/16/25 13:02 Glucose 117.0 mg/dL (70-115) H 06/16/25 13:02 Ionized Calcium 1.2 mmol/L (1.1-1.4) 06/16/25 13:02 O2 Delivery Device Nc 06/16/25 13:02 O2 Liters/Min 1.5 % 06/16/25 13:02 FiO2 26.0 % 06/16/25 13:02 Sliding Joint Maker ID glc 06/16/25 13:02 Sodium 131 mmol/L (136-145) L 06/16/25 12:03 Potassium 4.4 mmol/L (3.5-5.1) 06/16/25 12:03 Chloride 91 mmol/L (98-107) L 06/16/25 12:03 Carbon Dioxide 24 mmol/L (22-29) 06/16/25 12:03 Anion Gap 20.4 (5-19) H 06/16/25 12:03 BUN 15 mg/dL (8-23) 06/16/25 12:03 Creatinine 0.7 mg/dL (0.7-1.2) 06/16/25 12:03 GFR Calculation 112.5 mL/min (90-130) 06/16/25 12:03 Glucose 123 mg/dL (65-115) H 06/16/25 12:03 Calculated Osmolality 274 mOsm/kg (285-295) L 06/16/25 12:03 Calcium 9.6 mg/dL (8.5-10.5) 06/16/25 12:03 Total Bilirubin 0.7 mg/dL (0.15-1.2) 06/16/25 12:03 AST 52 U/L (0-40) H 06/16/25 12:03 ALT 71 U/L (0-41) H 06/16/25 12:03 Alkaline Phosphatase 124 U/L (40-130) 06/16/25 12:03 Troponin T Baseline 21 ng/L (0-15) H 06/16/25 12:03 Troponin T 120 Minute 21.93 ng/L (0-15) H 06/16/25 13:58 Delta Troponin T 0.93 ABS# (0-10) 06/16/25 13:58 NT-Pro-B Natriuret Pep 681 pg/mL (0-125) H 06/16/25 12:03 Total Protein 7.2 g/dL (6.6-8.7) 06/16/25 12:03 Albumin 4.2 g/dL (3.5-5.2) 06/16/25 12:03 Globulin 3.0 g/dL (1.3-4.6) 06/16/25 12:03 Urine Color Yellow (Yellow) 06/16/25 14:03 Urine Appearance Clear (CLEAR) 06/16/25 14:03 Urine pH 6.0 (5-7) 06/16/25 14:03 Ur Specific [place] 1.007 (1.005-1.030) 06/16/25 14:03 Urine Protein Negative (Negative) 06/16/25 14:03 Urine Glucose (UA) Negative (Normal) 06/16/25 14:03 Urine Ketones Negative (Negative) 06/16/25 14:03 Urine Blood Non-haemolysed trace (Negative) 06/16/25 14:03 Urine Nitrate Negative (Negative) 06/16/25 14:03 Urine Bilirubin Negative (Negative) 06/16/25 14:03 Urine Urobilinogen 0.2 mg/dL (Negative) 06/16/25 14:03 Ur Leukocyte Esterase Negative (Negative) 06/16/25 14:03 Urine RBC 0-2 /hpf (0-2) 06/16/25 14:03 Urine WBC 0-5 /hpf (0-5) 06/16/25 14:03 Ur Squamous Epith Cells 0-5 /hpf (0-5) 06/16/25 14:03 Amorphous Sediment Not Reportable 06/16/25 14:03 Urine Bacteria None seen /hpf (NONE) 06/16/25 14:03 Hyaline Casts 0.40 /lpf 06/16/25 14:03 Influenza A (PCR) Negative (Negative) 06/16/25 13:36 Influenza Type B (PCR) Negative (Negative) 06/16/25 13:36 RSV (PCR) Negative (Negative) 06/16/25 13:36 SARS-CoV-2 (PCR) Negative (Negative) 06/16/25 13:36 All radiology interpretation(s) finalized by discharge EKG Data EKG 1: Interpretation: EKG 06/16/2025 11:29 AM rate 112 OH interval 132 QTc [address] elevation noted. When compared to EKG 11/14/2016 sinus rhythm seen previously now replaced by sinus tachycardia. No acute changes otherwise. EKG 2: Interpretation: EKG 06/16/2025 1344 sinus tachycardia rate 100 OH interval 140 QTc [address] changes noted when compared to EKG done earlier today no significant change Discharge Plan Discharge Patient Disposition: Admitted As Inpatient Admit Provider: Noa Jesus Clinical Impression: Acute exacerbation of chronic obstructive airways disease, Acute respiratory failure with hypoxia Condition: Stable Coding Level of Care Code ED Advanced Practice Nurse for Timothyg Asim
[2025-06-16 12:53] LABS: Alanine Aminotransferase 71 U/L (0-41); Albumin Level 4.2 g/dL (3.5-5.2); Alkaline Phosphatase 124 U/L (40-130); Anion Gap 20.4 (5-19); Aspartate Amino Transferase 52 U/L (0-40); Carbon Dioxide 24 mmol/L (22-29); Chloride 91 mmol/L (98-107); Creatinine Clr Calc Pharmacy 91.4239; Globulin 3.0 g/dL (1.3-4.6); Glucose 123 mg/dL (65-115); NT Pro B Type Natriuretic Pept 681 pg/mL (0-125); Potassium 4.4 mmol/L (3.5-5.1); Sodium 131 mmol/L (136-145); Total Protein 7.2 g/dL (6.6-8.7)
[2025-06-16 12:54] VITALS: PULSE 100; RESP 20; O2SAT 92
[2025-06-16] MEDS: methylPREDNISolone sod succ 125 mg/2 mL INJ IVP (13:10)
[2025-06-16 13:12] LABS: Blood Urea Nitrogen 15 mg/dL (8-23); Calcium 9.6 mg/dL (8.5-10.5); Osmolality Calculated 274 mOsm/kg (285-295)
[2025-06-16 13:15] LABS: ABG PCO2 40.6 mmHg (35-45); ABG PH Result 7.41 (7.35-7.45); Alveolar-Arterial Oxygen Gradi 9.6 mmHg (5-10); Arterial Blood Gas Hematocrit 49.9 % (42-52); Blood Gas Allen Test Pos; Blood Gas LPM 1.5 %; Blood Gas Operator Identificat glc; Blood Gas Sample Site Radial, right; Blood Gas Sample Type Arterial; Carboxyhemoglobin 1.4 %THgb (0.4-20.1); Glucose Level-ABG 117.0 mg/dL (70-115); HCO3 ABG 25.9 mmol/L (22-26); Ionized Calcium Level - ABG 1.2 mmol/L (1.1-1.4); Methemoglobin 0.0 % (0.4-1.5); Oxygen Saturation ABG 91.2; PO2 ABG 60.9 mmHg (80.0-100.0); PO2 FiO2 Ratio Arterial Blood 234; Potassium Level - ABG 4.2 mmol/L (3.5-5.0); Sodium Level - ABG 130.0 mmol/L (131-143)
--- NOTE | 2025-06-16 13:44 | ECG_ITS ---
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 Measurements Intervals [place] Rate: 100 P: 76 [place]: 140 QRS: -31 QRSD: 84 T: 67 QT: 357 QTc: 462 Interpretive Statements SINUS TACHYCARDIA POSSIBLE LEFT ATRIAL ENLARGEMENT [-0.1mV P-WAVE IN V1/V2] LEFT AXIS DEVIATION [QRS AXIS < -30] Compared to ECG 06/16/2025 11:29:53 No significant changes Electronically Signed On 06-16-2025 20:26:41 CDT by Favian Lechuga M.D. [email or web address]
[2025-06-16 14:12] LABS: Glucose Urine UA Negative (Normal); Nitrate Urine Negative (Negative); Specific Gravity, Urine 1.007 (1.005-1.030)
[2025-06-16 14:15] LABS: Add Urine Microscopic? YES
[2025-06-16 14:24] LABS: Respiratory Syncytial Virus Ce NEGATIVE (Negative); SARS-CoV-2 PCR NEGATIVE (Negative)
[2025-06-16 14:40] LABS: Troponin 5 2HR 21.93 ng/L (0-15); Troponin 5 2HR Delta 0.93 ABS# (0-10)
[2025-06-16 14:45] VITALS: BP 160/75; PULSE 95; RESP 17; O2SAT 95
[2025-06-16 15:21] VITALS: BP 160/75; PULSE 94; O2SAT 95
[2025-06-16 17:06] VITALS: BMI 28.0
--- NOTE | 2025-06-16 17:17 | PM.HP ---
Providers/Chief Complaint Admitting Physician: Noa Jesus MD Primary Care Provider: Arcelia Whaley Chief Complaint: sob History of Present Illness Lucho Chavez is a 65 year old male who presented to the emergency room with chief complaint of progressively worsening difficulty breathing. He says his difficulty breathing began in the early part of the year. He started seeking care for it and in the spring. It started as what he describes as a catch in his throat. He has also had some difficulty swallowing. He has had cough productive of some sputum but really has just been extremely dyspneic with any amount of exertion and at rest. Over the last few months he has had pulmonary function studies from what he describes along with a barium swallow. The barium swallow study was done here it did not show any evidence of aspiration. He has been seen by ENT and in fact Dr. Eduardo recommended that he come to the emergency room given how bad his breathing was. He does have a history of smoking cigars and pipes off-and-on, never smoked cigarettes. Has never been diagnosed with COPD nor required oxygen. He did work in a [employer] for about 15 years. He lives in an older house without hot water and does use wood for heating when it is needed. He has been recently treated with an antifungal medication for a fungal infection in his throat and has also received a course of levofloxacin. Mr. Chavez does have a history of recurrent DVT and known factor V Leiden mutation for which she is on chronic Xarelto. Has not missed any recently. No complaints of swelling in his leg. No complaints of chest pain. Has had some loose stools with antibiotics but no abdominal pain. Denies any numbness tingling or weakness in his extremities. No neurological complaints otherwise. No fevers. No current sore throat. Has been hoping he can get into see a lung doctor to get some answers as to what's been going on. No family history of any lung disease or heart disease known. Review of Systems General: Reports: Other (ROS as per HPI or as otherwise noted here) Medications/Allergies Home Medications ?Medication ?Instructions ?Recorded ?Confirmed ?Last Taken ?Type calcium 333 mg-vit D3 200 1 tab PO DAILY 06/16/25 06/16/25 06/15/25 History unit-magnesium 133 mg-zinc 5 mg tablet levofloxacin 500 mg tablet 700 mg PO DAILY 09/06/16/25 06/15/25 History losartan 100 mg tablet 100 mg PO DAILY 06/16/25 06/16/25 06/16/25 History metoprolol succinate 25 mg 25 mg PO DAILY 06/16/25 06/16/25 06/15/25 History tablet,extended release 24 hr multivitamin with minerals-folic 1 tab PO DAILY 06/16/25 06/16/25 06/15/25 History acid 400 mcg-lycopene 370 mcg tablet (One-A-Day Men's 50 Plus) rivaroxaban 20 mg tablet (Xarelto) 20 mg PO DAILY 06/16/25 06/16/25 06/16/25 History Allergies Allergy/AdvReac Type Severity Reaction Status Date / Time amlodipine Allergy ADR/ALGY-Fl Verified 06/16/25 11:35 ushing colchicine Allergy ADR/ALGY-Fl Verified 06/16/25 11:35 ushing PFSH Acute PFSH: Medical History (Updated 06/16/25 @ 20:22 by Noa Jesus MD) Primary hypertension History of echocardiogram 2019 EF 59%, no wall motion abnormalities History of cardiovascular stress test 2019 abnormal EKG response, perfusion with small areas of persistent decreased uptake in anteroseptal and inferolateral yang suggestive of scarring or atetnuation artifacts History of TIA (transient ischemic attack) and stroke mild stroke involving the left hippocampus in 2015 with resolution of symptoms Gout Factor V Leiden mutation Recurrent deep vein thrombosis (DVT) of both lower extremities failed warfarin in 2016, on rivaroxaban since then Surgical History (Updated 06/16/25 @ 19:39 by Noa Jesus MD) History of vocal cord polypectomy when in his 20s Family History (Updated 06/16/25 @ 19:57 by Noa Jesus MD) Denies family history of Heart disease Lung disease Social History (Updated 06/16/25 @ 19:45 by Noa Jesus MD) Smoking and tobacco/nicotine status: former use of tobacco/nicotine Alcohol intake: current Alcohol intake frequency: 3 or more drinks per day Alcohol type: beer Alcohol use comment: 6 pack per day Substance/Drug Use: current Substance/Drug use type: Marijuana Other substance/drug use details: sometimes Additional social history: previously smoked cigars and pipes off and on Vitals/I&O/Wt Last Vital Signs Temp 97.8 F 06/16/25 11:31 Pulse 94 06/16/25 15:21 Resp 17 06/16/25 14:45 BP 160/75 06/16/25 15:21 Pulse Ox 95 06/16/25 15:21 O2 Del Method Nasal Cannula 06/16/25 14:45 O2 Flow Rate 5 06/16/25 14:45 Weight last 48 hrs Weight 81.193 kg Physical Exam Narrative: Patient is awake and alert. Able to provide history but has to pause very frequently while talking to take in a deep breath. Cannot complete a long sentence without having a pause. Normocephalic. Extraocular movements are intact. Oropharynx with dry mucosa. No nasal drainage noted. Neck is supple. Lungs with scattered inspiratory and expiratory wheezes. No rhonchi noted. Cardiovascular exam reveals a tachycardic but regular rhythm. Abdomen is soft, nontender. Left lower extremity is larger than right lower extremity which is a chronic finding due to recurrent DVTs in the left lower extremity. Clubbing is noted. Speech is clear, face symmetric, moves all extremities. No tremor noted. Data 06/16/25 12:03 06/16/25 12:03 Other Labs: Radiology Impressions Chest X-Ray 06/16/25 11:44 IMPRESSION: 1. Normal chest. Laboratory Results WBC 12.34 10^3/uL (3.29-11.43) H 06/16/25 12:03 RBC 4.72 10^6/uL (3.85-5.65) 06/16/25 12:03 Hgb 15.40 g/dL (11.27-16.99) 06/16/25 12:03 Hct 44.2 % (37-53) 06/16/25 12:03 MCV 93.6 fl (82-101) 06/16/25 12:03 MCH 32.6 pg (27-33) 06/16/25 12:03 MCHC 34.8 g/dL (30-55) 06/16/25 12:03 RDW 11.6 % (12.1-15.1) L 06/16/25 12:03 Plt Count 312 10^3/cmm (157-399) 06/16/25 12:03 MPV 9.6 fL (7.4-10.4) 06/16/25 12:03 Neut % (Auto) 89.4 % 06/16/25 12:03 Lymph % (Auto) 4.9 % 06/16/25 12:03 Bond % (Auto) 4.9 % 06/16/25 12:03 Eos % (Auto) 0.1 % 06/16/25 12:03 Baso % (Auto) 0.2 % 06/16/25 12:03 Neut # (Auto) 11.03 10^3/uL (1.8-7.7) H 06/16/25 12:03 Lymph # (Auto) 0.6 10^3/uL (0.8-4.8) L 06/16/25 12:03 Bond # (Auto) 0.6 10^3/uL (0.2-0.9) 06/16/25 12:03 Eos # (Auto) 0.0 10^3/uL (0.0-0.8) 06/16/25 12:03 Baso # (Auto) 0.0 10^3/uL (0.0-0.1) 06/16/25 12:03 Nucleated RBC % (auto) 0 % 06/16/25 12:03 Nucleated RBCs # 0.0 /100WBC 06/16/25 12:03 D-Dimer 0.46 ug/mLFEU (0-0.59) 06/16/25 12:03 Specimen Type Arterial 06/16/25 13:02 Sample Site Radial, right 06/16/25 13:02 ABG pH 7.41 (7.35-7.45) 06/16/25 13:02 ABG pCO2 40.6 mmHg (35-45) 06/16/25 13:02 ABG pO2 60.9 mmHg (80.0-100.0) L 06/16/25 13:02 ABG PO2/FiO2 Ratio 234 06/16/25 13:02 ABG HCO3 25.9 mmol/L (22-26) 06/16/25 13:02 ABG O2 Saturation 91.2 06/16/25 13:02 ABG Base Excess 1.2 mmol/L (-2.0-2.0) 06/16/25 13:02 Kev Test Pos 06/16/25 13:02 A-a O2 Gradient 9.6 mmHg (5-10) 06/16/25 13:02 Hematocrit 49.9 % (42-52) 06/16/25 13:02 Hgb O2 Saturation 90.0 % (95-100) L 06/16/25 13:02 Carboxyhemoglobin 1.4 %THgb (0.4-20.1) 06/16/25 13:02 Methemoglobin 0.0 % (0.4-1.5) L 06/16/25 13:02 Total Hemoglobin 16.3 g/dL (14-18) 06/16/25 13:02 Sodium 130.0 mmol/L (131-143) L 06/16/25 13:02 Potassium 4.2 mmol/L (3.5-5.0) 06/16/25 13:02 Glucose 117.0 mg/dL (70-115) H 06/16/25 13:02 Ionized Calcium 1.2 mmol/L (1.1-1.4) 06/16/25 13:02 O2 Delivery Device Nc 06/16/25 13:02 O2 Liters/Min 1.5 % 06/16/25 13:02 FiO2 26.0 % 06/16/25 13:02 Bread Racker ID glc 06/16/25 13:02 Sodium 131 mmol/L (136-145) L 06/16/25 12:03 Potassium 4.4 mmol/L (3.5-5.1) 06/16/25 12:03 Chloride 91 mmol/L (98-107) L 06/16/25 12:03 Carbon Dioxide 24 mmol/L (22-29) 06/16/25 12:03 Anion Gap 20.4 (5-19) H 06/16/25 12:03 BUN 15 mg/dL (8-23) 06/16/25 12:03 Creatinine 0.7 mg/dL (0.7-1.2) 06/16/25 12:03 GFR Calculation 112.5 mL/min (90-130) 06/16/25 12:03 Glucose 123 mg/dL (65-115) H 06/16/25 12:03 Calculated Osmolality 274 mOsm/kg (285-295) L 06/16/25 12:03 Calcium 9.6 mg/dL (8.5-10.5) 06/16/25 12:03 Total Bilirubin 0.7 mg/dL (0.15-1.2) 06/16/25 12:03 AST 52 U/L (0-40) H 06/16/25 12:03 ALT 71 U/L (0-41) H 06/16/25 12:03 Alkaline Phosphatase 124 U/L (40-130) 06/16/25 12:03 Troponin T Baseline 21 ng/L (0-15) H 06/16/25 12:03 Troponin T 120 Minute 21.93 ng/L (0-15) H 06/16/25 13:58 Delta Troponin T 0.93 ABS# (0-10) 06/16/25 13:58 NT-Pro-B Natriuret Pep 681 pg/mL (0-125) H 06/16/25 12:03 Total Protein 7.2 g/dL (6.6-8.7) 06/16/25 12:03 Albumin 4.2 g/dL (3.5-5.2) 06/16/25 12:03 Globulin 3.0 g/dL (1.3-4.6) 06/16/25 12:03 Urine Color Yellow (Yellow) 06/16/25 14:03 Urine Appearance Clear (CLEAR) 06/16/25 14:03 Urine pH 6.0 (5-7) 06/16/25 14:03 Ur Specific [place] 1.007 (1.005-1.030) 06/16/25 14:03 Urine Protein Negative (Negative) 06/16/25 14:03 Urine Glucose (UA) Negative (Normal) 06/16/25 14:03 Urine Ketones Negative (Negative) 06/16/25 14:03 Urine Blood Non-haemolysed trace (Negative) 06/16/25 14:03 Urine Nitrate Negative (Negative) 06/16/25 14:03 Urine Bilirubin Negative (Negative) 06/16/25 14:03 Urine Urobilinogen 0.2 mg/dL (Negative) 06/16/25 14:03 Ur Leukocyte Esterase Negative (Negative) 06/16/25 14:03 Urine RBC 0-2 /hpf (0-2) 06/16/25 14:03 Urine WBC 0-5 /hpf (0-5) 06/16/25 14:03 Ur Squamous Epith Cells 0-5 /hpf (0-5) 06/16/25 14:03 Amorphous Sediment Not Reportable 06/16/25 14:03 Urine Bacteria None seen /hpf (NONE) 06/16/25 14:03 Hyaline Casts 0.40 /lpf 06/16/25 14:03 Influenza A (PCR) Negative (Negative) 06/16/25 13:36 Influenza Type B (PCR) Negative (Negative) 06/16/25 13:36 RSV (PCR) Negative (Negative) 06/16/25 13:36 SARS-CoV-2 (PCR) Negative (Negative) 06/16/25 13:36 Other data: 05/22 Barium swallow IMPRESSION: 1. No penetration or aspiration identified. A&P Assessment and plan 1. Acute respiratory failure with hypoxia: Has been progressively worsening over the last 6 months or so. Does not carry a diagnosis of COPD or asthma. Has a history of hypertension but no other known heart disease. Differential includes COPD or other chronic lung disease particularly with findings of clubbing and normal pH. 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 Known to have factor V Leiden mutation and recurrent DVTs for which he is on chronic anticoagulation. No known family history of pulmonary disease. Had vocal cord polypectomy many years ago and has some difficulty with incomplete swallowing but no evidence of aspiration on recent barium swallow. He does have leukocytosis despite being on antibiotics recently as well as antifungals. Differential shows left shift with lymphopenia. Respiratory panel with influenza, RSV and COVID were negative. D-dimer was negative. Has associated hypoxemia requiring oxygen currently. - Continue oxygen therapy - Will change to oral steroids, received Solu-Medrol IV in the emergency room - Continue breathing treatments, add flutter and incentive spirometry - Will continue levofloxacin that was prescribed to complete course, currently on day 5 of 7 - Check CT scan of the chest, ideally would like high-resolution study - Will go on and check CRP, sed rate, IV, Legionella - Continue serial cardiac enzymes and EKGs, check lipid panel and TSH - Check echocardiogram - Telemetry monitoring - Will give 1 dose of Lasix and monitor response - Request records [facility] Susi Hancock - Additional plans, including pulmonology referral either inpatient or outpatient, pending results of above 2. Shortness of breath at rest: Related to above 3. Recurrent deep vein thrombosis (DVT) of both lower extremities: Chronically on Xarelto - For now we will continue rivaroxaban at usual home dosing 4. Factor V Leiden mutation: Aware 5. Primary hypertension: Chronically on losartan and metoprolol succinate - Continue usual home doses of ARB and beta-harry 6. Daily consumption of alcohol: Aware. Has slight elevation in transaminases. - Check INR and repeat LFTs - B12, folate and multivitamin - Monitor for need to implement CIWA protocol Plan: Elevated blood sugar without history of diabetes, check A1c Hyponatremia, hypochloremia, has some edema and an elevated BNP but also daily beer drinker, recheck in am after lasix, check magnesium and phosphorus levels Inpatient admission VTE prophylaxis: Home Xarelto dosing Antibiotics: On day 5 of 7 of Levaquin Pending studies: Morning labs that include sed rate, CRP, Legionella, IV, TSH; CT of the chest; echocardiogram Telemetry: Ordered due to hypoxemia and degree of dyspnea Santacruz: not currently indicated Line(s): peripheral IVs Disposition plan: Home with outpatient follow up the primary care provider and referral to pulmonology anticipated. Will need to evaluate for oxygen therapy need at the time of discharge. Anticipate additional medications possible. Code Status: Full Code Supportive care otherwise Findings, concerns and plans were discussed with patient and they were given an opportunity to ask questions PDMP PDMP Reviewed: Last Reviewed 06/16/25 20:26 by Noa Jesus MD Attestations Medical Necessity Statement*: Anticipated stay greater than two midnights in this gentleman with significant shortness of breath currently having difficulty talking in complete sentences due to dyspnea. He is requiring oxygen therapy which is new for him. He has been worked up on an outpatient basis, seen specialist and recently treated with antibiotics without sustained clinical improvement. This may be a first episode of obstructive lung disease related to his cigar and pipe use but has risk factors for pneumoconiosis and associated interstitial lung disease as well. Initial cardiac enzymes are elevated with an unremarkable 2-hour delta but will need to be trended. In addition to oxygen therapy, antibiotics and workup, he is receiving some IV diuretics. Coding Level of Care Code 67360 High Time for a total of 85 minutes, includes reviewing past or interval history, examining/interviewing patient, placing orders, discussing plan of care with staff (nursing staff) and documenting encounter Diagnoses Acute respiratory failure with hypoxia J96.01 Shortness of breath at rest R06.02 Recurrent deep vein thrombosis (DVT) of both lower extremities I82.403 Factor V Leiden mutation D68.51 Primary hypertension I10 Hypertension type: primary hypertension Daily consumption of alcohol Z78.9
--- NOTE | 2025-06-16 18:31 | ECG_ITS ---
[employer] [facility] Test Date: 2025-06-16 Pat Name: Lucho Chavez Department: Room: 276 Gender: Male Reproductive Endocrinologist: : 1960 Requested By: Issa Gutierrez Order Number: [id number] Jess MD: Favian Lechuga M.D. Measurements Intervals [place] Rate: 106 P: 2 [place]: 152 QRS: -45 QRSD: 71 T: 4 QT: 327 QTc: 435 Interpretive Statements SINUS TACHYCARDIA INFERIOR MYOCARDIAL INFARCTION , PROBABLY OLD [40+ ms Q WAVE AND/OR ST/T ABNORMALITY IN II/aVF] Compared to ECG 06/16/2025 13:44:09 Myocardial infarct finding now present Left-axis deviation no longer present Electronically Signed On 06-16-2025 20:24:35 CDT by Favian Lechuga M.D. [email or web address]
[2025-06-16 18:56] LABS: Troponin 5 6HR 18.51 ng/L (0-15)
[2025-06-16 18:58] LABS: Troponin 5 6HR Delta -2.49 ng/L (0-12)
--- NOTE | 2025-06-16 19:33 | CTR_ITS ---
PROCEDURE INFORMATION: Exam: CTA Chest With Contrast Exam date and time: 06/16/2025 10:39 PM Age: 65 years old Clinical indication: Shortness of breath; Additional info: Sever SOB, on anticoag, HX factor v lieden, new oxygen need, if can do high resolution study would be helpful in this TECHNIQUE: Imaging protocol: Computed tomographic angiography of the chest with contrast. Exam focused on the arteries. 3D rendering (Not supervised by radiologist): MIP and/or 3D reconstructed images were created by the technologist. Radiation optimization: All CT scans at this facility use at least one of these dose optimization techniques: automated exposure control; mA and/or kV adjustment per patient size (includes targeted exams where dose is matched to clinical indication); or iterative reconstruction. Contrast material: OMNI 350; Contrast volume: 100 ml; Contrast route: INTRAVENOUS (IV); COMPARISON: CR XR chest 1V portable [id number] 06/16/2025 11:50 AM RADIATION DOSE METRICS: Total DLP (mGy-cm): 353.54 FINDINGS: Pulmonary arteries: Normal. No pulmonary emboli. Aorta: Mild atherosclerotic changes of the thoracic aorta and its major branch vessels is noted. Lungs: Suggested tiny filling defects within a left upper lobe/lingular segmental/subsegmental pulmonary artery (series 7, images 258-283). This is difficult to localize on coronal sequences given slice thickness. Artifact from adjacent bronchial can be considered. Right upper and middle lobe hazy ground-glass opacities nonspecific. No confluent consolidation. Pleural spaces: No pleural effusion. No pneumothorax is seen. Heart: Unremarkable. No cardiomegaly. No pericardial effusion. Coronary arteries: Mild coronary atherosclerosis is present. Lymph nodes: Unremarkable. No enlarged lymph nodes. Adrenal glands: 1.6 cm right adrenal nodule measuring less than 10 Hounsfield units. Kidneys: Simple right renal cysts are present (Bosniak 1). No follow-up required. Stomach: Intraluminal hyperattenuating foreign bodies are seen in gastric lumen, likely ingested material/medication in the absence provided ingested foreign body clinical history. Intestine: Colonic diverticulosis without evidence of acute diverticulitis is present. The large and small bowel are otherwise unremarkable without obstruction or wall thickening. Bones/joints: Unremarkable. No acute fracture. Soft tissues: Unremarkable. CT/CT angio chest [id number] IMPRESSION: 1. Tiny filling defects along the a left upper lobe/lingular segmental/subsegmental pulmonary artery, highly favored to represent artifact from adjacent bronchial volume averaging. Tiny nonocclusive pulmonary emboli can not be completely excluded. However, no other pulmonary emboli are identified. No evidence of acute right heart strain. 2. Nonspecific right upper and middle lobe hazy ground-glass opacity. Correlate for small airways disease/viral etiology. 3. Right adrenal adenoma. 4. Colonic diverticulosis without evidence of acute diverticulitis. COMMENTS: Consistent with the [employer]'s Incidental Findings Committee white paper (J Am Caio Radiol 2018): Any incidental renal lesion less than 1 cm or classified as too small to characterize, or any incidental cystic renal lesion characterized as simple-appearing, is likely benign. No follow-up imaging is recommended for these lesions per consensus recommendations based on imaging criteria.
[2025-06-16 20:00] VITALS: BP 163/81; PULSE 117; RESP 21; TEMP 36.8; O2SAT 93
[2025-06-16] MEDS: FUROsemide 10 mg/mL SDV 2mL 20 MG IVP (21:38)
[2025-06-16 22:00] VITALS: PULSE 123
[2025-06-16] MEDS: iohexol 350 mg/mL 500 mL Btl (per mL) IV (23:09)
[2025-06-17] VITALS (16 sets, daily range): BP systolic 136–168; BP diastolic 66–83; PULSE 76–105; RESP 16–20; TEMP 36.6–37; O2SAT 85–96
[2025-06-17 04:54] LABS: Hematocrit 44.8 % (37-53); Hemoglobin 15.40 g/dL (11.27-16.99); Mean Corpuscular HGB Conc 34.4 g/dL (30-55); Mean Corpuscular Hemoglobin 33.1 pg (27-33); Mean Corpuscular Volume 96.3 fl (82-101); Nucleated Red Blood Cells % 0 %; Platelet Count 324 10^3/cmm (157-399); Red Blood Count 4.65 10^6/uL (3.85-5.65); White Blood Count 10.16 10^3/uL (3.29-11.43)
[2025-06-17 05:03] LABS: INR 1.04 (0.8-1.2); Prothrombin Time 14.40 SECONDS (12.1-14.9)
[2025-06-17 05:18] LABS: Estmated Average Glucose 126; Hemoglobin A1C 6.0 % (4.0-6.0)
[2025-06-17 05:20] LABS: Cholesterol 96 mg/dL (0-200); HDL Cholesterol 47 mg/dL (60-100); Triglycerides 28 mg/dL (0-150)
[2025-06-17 05:28] LABS: HIV 1 & 2 Antigen Non-Reactive (Non-Reactiv)
[2025-06-17 05:30] LABS: Alanine Aminotransferase 56 U/L (0-41); Albumin Level 3.7 g/dL (3.5-5.2); Alkaline Phosphatase 109 U/L (40-130); Anion Gap 15.2 (5-19); Aspartate Amino Transferase 37 U/L (0-40); Blood Urea Nitrogen 17 mg/dL (8-23); Calcium 9.5 mg/dL (8.5-10.5); Carbon Dioxide 27 mmol/L (22-29); Chloride 93 mmol/L (98-107); Creatinine Clr Calc Pharmacy 91.4239; Globulin 3.7 g/dL (1.3-4.6); Glucose 173 mg/dL (65-115); Magnesium 2.1 mg/dL (1.7-2.3); Osmolality Calculated 278 mOsm/kg (285-295); Potassium 4.2 mmol/L (3.5-5.1); Sodium 131 mmol/L (136-145); Thyroid Stimulating Hormone 0.30 uIU/mL (0.27-4.20); Total Protein 7.4 g/dL (6.6-8.7)
[2025-06-17] MEDS: LOSARTAN 100 MG TABLET PO (09:05)
[2025-06-17] MEDS: metoprolol succinate ER (24 HR) 25 mg Tablet PO (09:11)
[2025-06-17] MEDS: multivitamin therapeutic Tablet 1 TAB PO (09:11)
--- NOTE | 2025-06-17 11:09 | PC.CHAP ---
Pastoral Care Encounter/Spiritual Assessment Type of Contact [] Declined branch billing payroll clerk visit [] Patient/Family/Request visit [] Outpatient visit [] Follow-up visit [] Physician referral [] Code/Alert [x] Routine visit [] Staff referral [] Actively dying [] Patient sleeping [] Family support [] [] Out of room [] Palliative care [] [] Receiving care in room [] Pre-surgical visit [] Trauma [] Long length of stay [] ICU visit [] Other: Relational/Emotional Strength [x] Patient feels connected with others/family/visitors/staff [] Distress [] Loneliness/isolation [] Abandonment Spirituality of Patient [x] Person of Rhianna [] Attends Cheondoism of their Rhianna [x] Believes in Prayer [] Reads Bible or Quaker materials [] There are Spiritual issues to be addressed Geotechnical Department Manager Interventions [x] Prayer [x] Active listening [] Non-anxious presence [x] Spiritual/emotional support [] Crisis/trauma care [] Spiritual counseling [] Bereavement support [] Provided bereavement packet [] Provided Bible/devotional materials [] Provided toy/stuffed animal, coloring book to patient or family member [] Provided Communion [] Anointing/[place] [] Salvation [x] Completed spiritual assessment [] Other: Impact on Illness or Injury [] Angry [] Fearful [] Anxious [] Often cries [] Exhaustion [] Unable to work [] Unable to attend adventist [] Unable to walk/stand [] Unable to read [] Unable to drive [] Unable to eat/drink [] Unable to sleep [] Unable to be with family [] Patient intubated [] Other: Summary Time spent with patient 5 min
--- NOTE | 2025-06-17 12:28 | P.PN_ITS ---
Subjective 2 Subjective: 65-year-old male presents with 6 months worth of progressive dyspnea now requiring oxygen. Patient smoked small cigars 1 a day 5 days a week for 1 to 2 years. He does not have an extensive tobacco history or other lung injury. He has never been diagnosed with COPD but required oxygen 5 L/min in emergency department yesterday. Today room air sats 85% Vitals/I&O/Wt Last Vital Signs Temp 97.8 F 06/17/25 11:10 Pulse 92 06/17/25 11:10 Resp 17 06/17/25 11:10 BP 143/76 06/17/25 11:10 Pulse Ox 85 L 06/17/25 11:44 O2 Del Method Nasal Cannula 06/17/25 11:10 O2 Flow Rate 4 06/17/25 11:44 06/16/25 06/17/25 06/17/25 22:59 06:59 14:59 Intake Total 240 / 240 Output Total 600 / 600 1000 / 1600 325 / 325 Balance -600 / -600 -1000 / -1600 -85 / -85 Weight last 48 hrs Weight 76.566 kg Weight 81.193 kg Weight 81.193 kg Physical Exam 2 Narrative: General well-developed well-nourished male sitting comfortably on bedside commode which is covered eating lunch. He is in no respiratory distress CV regular rate and rhythm Lungs he has expiratory wheezes diffusely as well as crackles bilateral lung newman this is not isolated to the bases Calves no tenderness cords pretibial edema Data 06/17/25 04:19 06/17/25 04:19 A&P Assessment and plan 1. Acute respiratory failure with hypoxia: Patient has hypoxemia which would be out of proportion to the amount of smoking that he has history of. Lung exam suggest a reactive airway component. He is receiving nebulizer treatments as well as steroids and Levaquin. Patient CT scan read as ground glass but in discussion with Dr. Casey she thinks this is more consistent with air trapping with triangular areas of air trapping. I have placed consultation with the lead miner blasting Was already on Levaquin outpatient and now day 6 of 7 2. Shortness of breath at rest: Related to above 3. Recurrent deep vein thrombosis (DVT) of left lower extremity: Chronically on Xarelto due to factor V Leiden deficiency - For now we will continue rivaroxaban at usual home dosing 4. Factor V Leiden mutation: Continue chronic anticoagulation 5. Primary hypertension: Chronically on losartan and metoprolol succinate - Continue usual home doses of ARB and beta-harry 6. Daily consumption of alcohol: Aware. Has slight elevation in transaminases. - Check INR and repeat LFTs - B12, folate and multivitamin - Monitor for need to implement CIWA protocol Plan: A1c is 6 Inpatient admission VTE prophylaxis: Home Xarelto dosing Antibiotics: On day 6 of 7 of Levaquin Pending studies: Morning labs that include sed rate, CRP, Legionella, IV, TSH; CT of the chest; echocardiogram Telemetry: Ordered due to hypoxemia and degree of dyspnea Santacruz: not currently indicated Line(s): peripheral IVs Disposition plan: Will need home O2. Consultation with lead miner blasting occurring currently Code Status: Full Code Supportive care otherwise Findings, concerns and plans were discussed with patient and they were given an opportunity to ask questions PDMP PDMP Reviewed: Not Reviewed Attestations 2 Medical Necessity Statement*: Patient will remain in the hospital overnight for monitoring of treatment and anticipate discharge in the morning with outpatient follow-up with pulmonary Coding Level of Care Code 94386 Diagnoses Acute respiratory failure with hypoxia J96.01 Shortness of breath at rest R06.02 Recurrent deep vein thrombosis (DVT) of left lower extremity I82.402 Factor V Leiden mutation D68.51 Primary hypertension I10 Hypertension type: primary hypertension Daily consumption of alcohol Z78.9 Time Spent (min) 35
--- NOTE | 2025-06-17 17:54 | PM.CONSULT ---
Providers/Reason For Consult Consulting Physician/Specialty*: Pulmonary critical care Reason for Consult*: Pulmonary infiltrates Requesting Physician: Markell Sumner MD Attending Physician: Markell Sumner MD Primary Care Provider: Arcelia Whaley History of Present Illness History of Present Illness Lucho Chavez is a 65 year old male with past medical history of factor V Leiden mutation, recurrent DVTs failed warfarin in 2016 on Eliquis since then, history of vocal cord polypectomy in his 20s, non-smoker gets admitted to the hospital yesterday with complaints of progressive shortness of breath. He has had worsening shortness of breath for a few months now along with some loss of weight. He has some choking issues. Describes had a barium swallow study. Seen by ENT Dr. Roper who recommended complete evaluation in the ER. He was placed on oxygen. Does not smoke cigarettes. Recently completed a course of antifungal medications for throat related infection he says. Barium study done on 05/22 was negative for any aspiration episodes. CT scan done reveals some pulmonary ground glass opacities per report. Workup negative for influenza AB RSV and SARS-CoV-2. Medications/Allergies Home Medications ?Medication ?Instructions ?Recorded ?Confirmed ?Last Taken ?Type baclofen 10 mg tablet 10 mg PO TID PRN Pain 06/16/25 06/16/25 Unknown History calcium 333 mg-vit D3 200 1 tab PO DAILY 06/16/25 06/16/25 06/15/25 History unit-magnesium 133 mg-zinc 5 mg tablet levofloxacin 500 mg tablet 700 mg PO DAILY 06/16/25 06/16/25 06/15/25 History losartan 100 mg tablet 100 mg PO DAILY 06/16/25 06/16/25 06/16/25 History metoprolol succinate 25 mg 25 mg PO DAILY 06/16/25 06/16/25 06/15/25 History tablet,extended release 24 hr multivitamin with minerals-folic 1 tab PO DAILY 06/16/25 06/16/25 06/15/25 History acid 400 mcg-lycopene 370 mcg tablet (One-A-Day Men's 50 Plus) rivaroxaban 20 mg tablet (Xarelto) 20 mg PO DAILY 06/16/25 06/16/25 06/16/25 History Allergies Allergy/AdvReac Type Severity Reaction Status Date / Time amlodipine Allergy ADR/ALGY-Fl Verified 06/16/25 20:50 ushing colchicine Allergy ADR/ALGY-Fl Verified 06/16/25 20:50 ushing Current Medications Generic Name Dose Route Start Last Admin Trade Name Thiago PRN Reason Stop Dose Admin Albuterol/Ipratropium 3 ml 06/17/25 02:00 06/17/25 13:36 Ipratropium-Albuterol 3 Ml Neb INHALATION 3 ml Q6H.RESP KRISTIN Administration Folic Acid 1 mg 06/17/25 09:00 06/17/25 09:02 Folic Acid 1 Mg Tablet PO 1 mg DAILY KRISTIN Administration Levofloxacin 750 mg 06/17/25 09:00 06/17/25 09:03 Levofloxacin 500 Mg Tablet PO 750 mg DAILY KRISTIN Administration Protocol Losartan Potassium 100 mg 06/17/25 09:00 06/17/25 09:05 Losartan 100 Mg Tablet PO 100 mg DAILY KRISTIN Administration Metoprolol Succinate 25 mg 06/17/25 09:00 06/17/25 09:11 Metoprolol Succinate Er (24 Hr) 25 Mg Tablet PO 25 mg DAILY KRISTIN Administration Multivitamins Therapeutic 1 tab 06/17/25 09:00 06/17/25 09:11 Multivitamin Therapeutic Tablet PO 1 tab DAILY KRISTIN Administration Prednisone 40 mg 06/17/25 09:00 06/17/25 09:11 Prednisone 20 Mg Tablet PO 06/22/25 08:59 40 mg DAILY KRISTIN Administration Rivaroxaban 20 mg 06/17/25 09:00 06/17/25 09:12 Rivaroxaban 10 Mg Tablet PO 20 mg DAILY KRISTIN Administration Thiamine Mononitrate 100 mg 06/17/25 09:00 06/17/25 09:13 Thiamine 100 Mg Tablet PO 100 mg DAILY KRISTIN Administration PFSH Acute PFSH: Medical History (Updated 06/17/25 @ 18:12 by Stephanie Gee MD) Pulmonary infiltrates Primary hypertension History of echocardiogram 2019 EF 59%, no wall motion abnormalities History of cardiovascular stress test 2019 abnormal EKG response, perfusion with small areas of persistent decreased uptake in anteroseptal and inferolateral yang suggestive of scarring or atetnuation artifacts History of TIA (transient ischemic attack) and 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 with resolution of symptoms Gout Factor V Leiden mutation Recurrent deep vein thrombosis (DVT) of left lower extremity failed warfarin in 2016, on rivaroxaban since then Surgical History (Updated 06/16/25 @ 19:39 by Noa Jesus MD) History of vocal cord polypectomy when in his 20s Family History (Updated 06/16/25 @ 19:57 by Noa Jessu MD) Denies family history of Heart disease Lung disease Social History (Updated 06/16/25 @ 19:45 by Noa Jesus MD) Smoking and tobacco/nicotine status: former use of tobacco/nicotine Alcohol intake: current Alcohol intake frequency: 3 or more drinks per day Alcohol type: beer Alcohol use comment: 6 pack per day Substance/Drug Use: current Substance/Drug use type: Marijuana Other substance/drug use details: sometimes Additional social history: previously smoked cigars and pipes off and on Vitals/I&O/Wt Last Vital Signs Temp 97.8 F 06/17/25 11:10 Pulse 80 06/17/25 13:36 Resp 18 06/17/25 13:36 BP 143/76 06/17/25 11:10 Pulse Ox 94 06/17/25 13:36 O2 Del Method Nasal Cannula 06/17/25 13:36 O2 Flow Rate 4 06/17/25 13:36 06/17/25 06/17/25 06/17/25 06:59 14:59 22:59 Intake Total 840 / 840 Output Total 1000 / 1600 325 / 325 Balance -1000 / -1600 515 / 515 Weight last 48 hrs Weight 168 lb 12.8 oz Weight 179 lb Weight 179 lb Physical Exam Narrative: General: alert, NAD HEENT: conj clear, EOMI, PERRL Neck: supple Pulmonary: Mild rhonchorous breath sounds in the right upper lobe but otherwise clear Cardiovascular: rrr, nl s1s2, no mrg Abdomen: soft, nt, nd, no r/g, Extremities: pulses +, no edema Skin: no rash Neurologic: grossly intact Data 06/17/25 04:19 06/17/25 04:19 A&P Assessment and plan 1. Acute respiratory failure with hypoxia: 2. Shortness of breath at rest: 3. Pulmonary infiltrates: Plan: Acute hypoxemic respiratory failure Patient's hypoxemia most likely is related to a probable viral illness versus aspiration episodes. I reviewed his CT scan personally myself which shows some pulmonary infiltrates mixed with gas trapping suspicious of underlying possible aspiration mixed with small airways disease. I agree at this time to continue his course of Levaquin. He might need a high-resolution CT scan as outpatient to document resolution of these infiltrates. We will schedule that in clinic for him. Wean off oxygen as needed. Pulmonary infiltrates Same as above Dysphagia Patient describes choking on food. Although his barium swallow study is negative I am suspicious of him having aspiration episodes. I recommend a GI consult as an outpatient for an EGD. Recurrent DVTs-continue Eliquis Thank you for the consult Medical decision making level-moderate PDMP PDMP Reviewed: Not Reviewed Coding Level of Care Code 36562 Diagnoses Acute respiratory failure with hypoxia J96.01 Shortness of breath at rest R06.02 Pulmonary infiltrates R91.8
--- NOTE | 2025-06-17 19:28 | USCV_ITS ---
Lucho Chavez Age: 65 Gender: M : 1960 Exam Date: 06/17/2025 09:48 Ordering Phys: Noa Jesus MD Technologist: NOE Exam Location: [facility] [place] Indication: Severe Dyspnea BP: 143 / 66 HR: 77 Rhythm: Sinus Technical Quality: Adequate MEASUREMENTS (Male / Female) Normal Values 2D ECHO LV Diastolic Diameter PLAX 4.7 cm 4.2 - 5.9 / 3.9 - 5.3 cm IVS Diastolic Thickness 1.0 cm 0.6 - 1.0 / 0.6 - 0.9 cm IVS Systolic Thickness 1.7 cm LVPW Diastolic Thickness 1.0 cm 0.6 - 1.0 / 0.6 - 0.9 cm LVPW Systolic Thickness 2.3 cm LVOT Diameter 2.1 cm LV Ejection Fraction 2D Teich 54.2 % LV Ejection Fraction MOD 4C 60.4 % LV Ejection Fraction MOD 2C 60.1 % LV Ejection Fraction 2C AL 63.3 % LA Diameter 3.6 cm RA Systolic Volume 4C AL 35.5 ml RA Systolic Volume 4C MOD 34.0 ml LA Sys Volume AL 34.8 cm cubed LA Sys Volume Index AL 18.2 cm cubed/m squared Aorta at Sinotubular Diameter 3.4 cm IVC Diameter 1.2 cm M-MODE LA Ao Ratio MM 1.4 AV Cusp Separation MM 1.7 cm DOPPLER AV Peak Velocity 147.0 cm/s LVOT Peak Velocity 114.0 cm/s AV Area Cont Eq vti 2.9 cm squared AV Area Cont Eq pk 2.6 cm squared MV Peak Velocity 91.0 cm/s MV Area PHT 4.2 cm squared Mitral E to A Ratio 0.8 TR Peak Velocity 175.0 cm/s TR Peak Gradient 12.3 mmHg TV Peak E Velocity 63.0 cm/s PV Peak Velocity 95.0 cm/s FINDINGS Left Ventricle Normal left ventricular size, systolic function and wall thickness, with no regional wall motion abnormalities. Left ventricular ejection fraction is estimated at 60%. Mildly increased left ventricular filling pressure. Grade I/IV diastolic dysfunction (abnormal relaxation filling pattern), normal to mildly elevated filling pressures. Right Ventricle Normal right ventricular size and systolic function. RVSP could not be calculated due to incomplete tricuspid regurgitation velocity profile. Right Atrium Normal right atrial size. Left Atrium Normal left atrial size. Mitral Valve Structurally normal mitral valve. No mitral valve stenosis. No mitral valve regurgitation. Aortic Valve No aortic valve stenosis. Trace aortic valve regurgitation. Tricuspid Valve Trace tricuspid valve regurgitation. No tricuspid valve stenosis. Pulmonic Valve No pulmonary valve stenosis. No pulmonary valve regurgitation. Pericardium No pericardial effusion. Aorta Normal size aortic root and proximal ascending aorta. IVC Normal inferior vena cava. CONCLUSIONS 1. Normal biventricular size and systolic function, LV EF 60% 2. Grade I diastolic dysfunction of left ventricle, normal degree for age 3. No significant valvular abnormalities 4. Unable to measure pulmonary pressure due to inadequate TR jet Conner Mckenzie MD, FACC (Electronically Signed) Final Date: 17 June 2025 13:14 S
[2025-06-18] VITALS (11 sets, daily range): BP systolic 143–153; BP diastolic 71–88; PULSE 78–98; RESP 16–19; TEMP 36.4–36.7; O2SAT 91–99
--- NOTE | 2025-06-18 07:29 | PC.SOCIAL ---
IMM Update pg 2 of IMM Updated and reviewed w/ patient. Copy provided and copy dated, initialed and placed in chart.
[2025-06-18] MEDS: metoprolol succinate ER (24 HR) 25 mg Tablet PO (07:59)
[2025-06-18] MEDS: multivitamin therapeutic Tablet 1 TAB PO (08:02)
[2025-06-18] MEDS: LOSARTAN 100 MG TABLET PO (08:02)
--- NOTE | 2025-06-18 13:46 | P.DS_ITS ---
Discharge Providers Date of Admission: 06/16/25 14:38 Date of Discharge: June 18, 2025 Attending Provider at Admission: Noa Li MD Attending Provider at Discharge: Markell Sumner MD Consults: Stephanie Gee MD pulmonology Primary Care Provider: Arcelia Whaley Diagnoses at Discharge Discharge Diagnosis 1. Acute respiratory failure with hypoxia: Details from hospital stay: Patient with recent worsening hypoxemia and cough and wheezing starting as an adult and notably worsening in the last 6 months. Chest x-ray no infiltrate however CT scan shows some pulmonary infiltrates mixed with gas trapping suspicious for underlying aspiration and small airways disease. Patient was seen by Dr. Gee who would like to see the patient in the office for follow-up and plans high-resolution CT scan. Patient reported some choking with food though his modified barium swallow was negative. He is going to practice chin tucks with eating. I had ordered speech therapy for today but patient has not been seen prior to discharge 2. Shortness of breath at rest: Details from hospital stay: Improved with oxygen requiring 2 L at rest 4 L with activity 3. Pulmonary infiltrates: Details from hospital stay: As above 4. Factor V Leiden mutation: Details from hospital stay: Continue with apixaban history of DVT failed warfarin 5. Daily consumption of alcohol: Details from hospital stay: Recommend the patient decrease or stop alcohol. Additionally will give a month of folic acid and thiamine. Reason for Visit Reason for Visit: sob Brief History: Lucho Chavez is a 65 year old male who presented to the emergency room with chief complaint of progressively worsening difficulty breathing. He says his difficulty breathing began in the early part of the year. He started seeking care for it and in the spring. It started as what he describes as a catch in his throat. He has also had some difficulty swallowing. He has had cough productive of some sputum but really has just been extremely dyspneic with any amount of exertion and at rest. Over the last few months he has had pulmonary function studies from what he describes along with a barium swallow. The barium swallow study was done here it did not show any evidence of aspiration. He has been seen by ENT and in fact Dr. Eduardo recommended that he come to the emergency room given how bad his breathing was. He does have a history of smoking cigars and pipes off-and-on, never smoked cigarettes. Has never been diagnosed with COPD nor required oxygen. He did work in a [employer] for about 15 years. He lives in an older house without hot water and does use wood for heating when it is needed. He has been recently treated with an antifungal medication for a fungal infection in his throat and has also received a course of levofloxacin. Mr. Chavez does have a history of recurrent DVT and known factor V Leiden mutation for which she is on chronic Xarelto. Has not missed any recently. No complaints of swelling in his leg. No complaints of chest pain. Has had some loose stools with antibiotics but no abdominal pain. Denies any numbness tingling or weakness in his extremities. No neurological complaints otherwise. No fevers. No current sore throat. Has been hoping he can get into see a lung doctor to get some answers as to what's been going on. No family history of any lung disease or heart disease known. Hospital Course Hospital Course Patient improved with Levaquin, steroids and nebulizer treatments. He was seen by Dr. Gerard PEREZ from pulmonology. Patient is encouraged to decrease or stop alcohol, practiced chin tuck method with swallows and follow-up with Dr. Gee outpatient. At this time he requires O2 2 L/min at rest 4 L/min with activity and nebulizer treatments Physical Exam Narrative: General well-developed well-nourished male sitting comfortably on bedside commode which is covered eating lunch. He is in no respiratory distress CV regular rate and rhythm Lungs clear with no wheezes today air movement is good. No crackles Calves no tenderness cords pretibial edema Discharge Data Studies Completed and Pending Completed Studies During Hospitalization Category Date Time Status CTA chest [CT angio chest [id number]] Routine Cat Scan 06/16/25 19:33 Completed XR chest 1V portable [id number] Stat Exams 06/16/25 11:44 Completed CV. echo complete* [id number] Routine Ultrasound 06/17/25 19:28 Completed Pending at discharge Category Date Time Status Legionella Antigen STAT Stat Lab 06/16/25 19:28 Uncollected Radiology Impressions Chest X-Ray 06/16/25 11:44 IMPRESSION: 1. Normal chest. Chest CTA 06/16/25 19:33 IMPRESSION: 1. Tiny filling defects along the a left upper lobe/lingular segmental/subsegmental pulmonary artery, highly favored to represent artifact from adjacent bronchial volume averaging. Tiny nonocclusive pulmonary emboli can not be completely excluded. However, no other pulmonary emboli are identified. No evidence of acute right heart strain. 2. Nonspecific right upper and middle lobe hazy ground-glass opacity. Correlate for small airways disease/viral etiology. 3. Right adrenal adenoma. 4. Colonic diverticulosis without evidence of acute diverticulitis. COMMENTS: Consistent with the [employer]'s Incidental Findings Committee white paper (J Am Caio Radiol 2018): Any incidental renal lesion less than 1 cm or classified as too small to characterize, or any incidental cystic renal lesion characterized as simple-appearing, is likely benign. No follow-up imaging is recommended for these lesions per consensus recommendations based on imaging criteria. ADDENDUM: 06/16/25 9575 THIS REPORT CONTAINS FINDINGS THAT MAY BE CRITICAL TO PATIENT CARE. The findings were verbally communicated via telephone conference with NOA LI at 11:22 PM CDT on 06/16/2025. The findings were acknowledged and understood. Laboratory Results WBC 10.16 10^3/uL (3.29-11.43) 06/17/25 04:19 RBC 4.65 10^6/uL (3.85-5.65) 06/17/25 04:19 Hgb 15.40 g/dL (11.27-16.99) 06/17/25 04:19 Hct 44.8 % (37-53) 06/17/25 04:19 MCV 96.3 fl (82-101) 06/17/25 04:19 MCH 33.1 pg (27-33) H 06/17/25 04:19 MCHC 34.4 g/dL (30-55) 06/17/25 04:19 RDW 11.7 % (12.1-15.1) L 06/17/25 04:19 Plt Count 324 10^3/cmm (157-399) 06/17/25 04:19 MPV 9.8 fL (7.4-10.4) 06/17/25 04:19 Neut % (Auto) 86.8 % 06/17/25 04:19 Lymph % (Auto) 6.6 % 06/17/25 04:19 [place] % (Auto) 5.8 % 06/17/25 04:19 Eos % (Auto) 0.0 % 06/17/25 04:19 Baso % (Auto) 0.1 % 06/17/25 04:19 Neut # (Auto) 8.82 10^3/uL (1.8-7.7) H 06/17/25 04:19 Lymph # (Auto) 0.7 10^3/uL (0.8-4.8) L 06/17/25 04:19 [place] # (Auto) 0.6 10^3/uL (0.2-0.9) 06/17/25 04:19 Eos # (Auto) 0.0 10^3/uL (0.0-0.8) 06/17/25 04:19 Baso # (Auto) 0.0 10^3/uL (0.0-0.1) 06/17/25 04:19 Nucleated RBC % (auto) 0 % 06/17/25 04:19 Nucleated RBCs # 0.0 /100WBC 06/17/25 04:19 ESR 7 mm/hr (0-10) 06/17/25 04:19 PT 14.40 SECONDS (12.1-14.9) 06/17/25 04:19 INR 1.04 (0.8-1.2) 06/17/25 04:19 D-Dimer 0.46 ug/mLFEU (0-0.59) 06/16/25 12:03 Specimen Type Arterial 06/16/25 13:02 Sample Site Radial, right 06/16/25 13:02 ABG pH 7.41 (7.35-7.45) 06/16/25 13:02 ABG pCO2 40.6 mmHg (35-45) 06/16/25 13:02 ABG pO2 60.9 mmHg (80.0-100.0) L 06/16/25 13:02 ABG PO2/FiO2 Ratio 234 06/16/25 13:02 ABG HCO3 25.9 mmol/L (22-26) 06/16/25 13:02 ABG O2 Saturation 91.2 06/16/25 13:02 ABG Base Excess 1.2 mmol/L (-2.0-2.0) 06/16/25 13:02 Kev Test Pos 06/16/25 13:02 A-a O2 Gradient 9.6 mmHg (5-10) 06/16/25 13:02 Hematocrit 49.9 % (42-52) 06/16/25 13:02 Hgb O2 Saturation 90.0 % (95-100) L 06/16/25 13:02 Carboxyhemoglobin 1.4 %THgb (0.4-20.1) 06/16/25 13:02 Methemoglobin 0.0 % (0.4-1.5) L 06/16/25 13:02 Total Hemoglobin 16.3 g/dL (14-18) 06/16/25 13:02 Sodium 130.0 mmol/L (131-143) L 06/16/25 13:02 Potassium 4.2 mmol/L (3.5-5.0) 06/16/25 13:02 Glucose 117.0 mg/dL (70-115) H 06/16/25 13:02 Ionized Calcium 1.2 mmol/L (1.1-1.4) 06/16/25 13:02 O2 Delivery Device Nc 06/16/25 13:02 O2 Liters/Min 1.5 % 06/16/25 13:02 FiO2 26.0 % 06/16/25 13:02 Child Welfare Specialist ID glc 06/16/25 13:02 Sodium 131 mmol/L (136-145) L 06/17/25 04:19 Potassium 4.2 mmol/L (3.5-5.1) 06/17/25 04:19 Chloride 93 mmol/L (98-107) L 06/17/25 04:19 Carbon Dioxide 27 mmol/L (22-29) 06/17/25 04:19 Anion Gap 15.2 (5-19) 06/17/25 04:19 BUN 17 mg/dL (8-23) 06/17/25 04:19 Creatinine 0.8 mg/dL (0.7-1.2) 06/17/25 04:19 GFR Calculation 96.4 mL/min (90-130) 06/17/25 04:19 Glucose 173 mg/dL (65-115) H 06/17/25 04:19 Estimat Average Glucose 126 06/17/25 04:19 Hemoglobin A1c 6.0 % (4.0-6.0) 06/17/25 04:19 Calculated Osmolality 278 mOsm/kg (285-295) L 06/17/25 04:19 Calcium 9.5 mg/dL (8.5-10.5) 06/17/25 04:19 Phosphorus 4.3 mg/dL (2.5-4.5) 06/17/25 04:19 Magnesium 2.1 mg/dL (1.7-2.3) 06/17/25 04:19 Total Bilirubin 0.5 mg/dL (0.15-1.2) 06/17/25 04:19 AST 37 U/L (0-40) 06/17/25 04:19 ALT 56 U/L (0-41) H 06/17/25 04:19 Alkaline Phosphatase 109 U/L (40-130) 06/17/25 04:19 Troponin T Baseline 21 ng/L (0-15) H 06/16/25 12:03 Troponin T 120 Minute 21.93 ng/L (0-15) H 06/16/25 13:58 Delta Troponin T 0.93 ABS# (0-10) 06/16/25 13:58 Troponin T Hi Sens 6Hr 18.51 ng/L (0-15) H 06/16/25 18:28 Troponin T Hi Sens 6Hr Delta -2.49 ng/L (0-12) L 06/16/25 18:28 C-Reactive Protein 7.9 mg/L (0.0-4.9) H 06/17/25 04:19 NT-Pro-B Natriuret Pep 681 pg/mL (0-125) H 06/16/25 12:03 Total Protein 7.4 g/dL (6.6-8.7) 06/17/25 04:19 Albumin 3.7 g/dL (3.5-5.2) 06/17/25 04:19 Globulin 3.7 g/dL (1.3-4.6) 06/17/25 04:19 Triglycerides 28 mg/dL (0-150) 06/17/25 04:19 Cholesterol 96 mg/dL (0-200) 06/17/25 04:19 LDL Cholesterol, Calc 43 mg/dL (50-129) L 06/17/25 04:19 HDL Cholesterol 47 mg/dL (60-100) L 06/17/25 04:19 LDL/HDL Ratio 0.91 RATIO (0.00-3.22) 06/17/25 04:19 Cholesterol/HDL Ratio 2.04 mg/dL (1.0-5.00) 06/17/25 04:19 TSH 0.30 uIU/mL (0.27-4.20) 06/17/25 04:19 Urine Color Yellow (Yellow) 06/16/25 14:03 Urine Appearance Clear (CLEAR) 06/16/25 14:03 Urine pH 6.0 (5-7) 06/16/25 14:03 Ur Specific [place] 1.007 (1.005-1.030) 06/16/25 14:03 Urine Protein Negative (Negative) 06/16/25 14:03 Urine Glucose (UA) Negative (Normal) 06/16/25 14:03 Urine Ketones Negative (Negative) 06/16/25 14:03 Urine Blood Non-haemolysed trace (Negative) 06/16/25 14:03 Urine Nitrate Negative (Negative) 06/16/25 14:03 Urine Bilirubin Negative (Negative) 06/16/25 14:03 Urine Urobilinogen 0.2 mg/dL (Negative) 06/16/25 14:03 Ur Leukocyte Esterase Negative (Negative) 06/16/25 14:03 Urine RBC 0-2 /hpf (0-2) 06/16/25 14:03 Urine WBC 0-5 /hpf (0-5) 06/16/25 14:03 Ur Squamous Epith Cells 0-5 /hpf (0-5) 06/16/25 14:03 Amorphous Sediment Not Reportable 06/16/25 14:03 Urine Bacteria None seen /hpf (NONE) 06/16/25 14:03 Hyaline Casts 0.40 /lpf 06/16/25 14:03 HIV 1&2 Ab & HIV 1 Ag Non-reactive (Non-Reactiv) 06/17/25 04:19 HIV 1&2 Antibody Non-reactive (Non-Reactiv) 06/17/25 04:19 Influenza A (PCR) Negative (Negative) 06/16/25 13:36 Influenza Type B (PCR) Negative (Negative) 06/16/25 13:36 RSV (PCR) Negative (Negative) 06/16/25 13:36 SARS-CoV-2 (PCR) Negative (Negative) 06/16/25 13:36 Vitals Last Vital Signs Temp 97.8 F 06/18/25 11:55 Pulse 88 06/18/25 13:31 Resp 16 06/18/25 13:28 BP 143/75 06/18/25 11:55 Pulse Ox 92 06/18/25 13:28 O2 Del Method Nasal Cannula 06/18/25 13:28 O2 Flow Rate 2 06/18/25 13:28 Discharge Plan Discharge Patient Disposition: Home Condition: Stable Prescriptions: New levofloxacin 500 mg Tablet 750 mg PO DAILY Qty: 7 0RF prednisone 10 mg tablet See Rx Instructions .ROUTE .COMPLEX Qty: 20 0RF Rx Instructions: Take 40 mg daily for 2 days 30 mg daily for 2 days 20 mg daily for 2 days 10 mg daily for 2 days and stop ipratropium-albuterol 0.5 mg-3 mg(2.5 mg base)/3 mL Solution For Nebulization 3 ml inhalation Q6H PRN (Reason: Shortness Of Breath) Qty: 360 0RF folic acid 1 mg Tablet 1 mg PO DAILY Qty: 30 0RF thiamine mononitrate (vit B1) [Vitamin B-1 (mononitrate)] 100 mg Tablet 100 mg PO DAILY Qty: 30 0RF Continued metoprolol succinate 25 mg tablet extended release 24 hr 25 mg PO DAILY losartan 100 mg tablet 100 mg PO DAILY calcium carb-D3-mag [id number] 333 mg-200 unit -133 mg-5 mg Tablet 1 tab PO DAILY Rx Instructions: administer with a meal Xarelto 20 mg tablet 20 mg PO DAILY One-A-Day Men's 50 Plus 400-370 mcg Tablet 1 tab PO DAILY baclofen 10 mg tablet 10 mg PO TID PRN (Reason: Pain) Rx Instructions: take 1 tablet by mouth three times daily as needed for pain Discontinued levofloxacin 500 mg tablet 700 mg PO DAILY Discharge Order = DC NOW: Discharge Order (Routine); Ordered 06/18/25 Ordered By: Markell Sumner Other Ambulatory Orders: DME: Oxygen (Order) Location: None Selected Ordered By: Markell Sumner Referrals: Stephanie Gee MD [Physician, Pulmonology] - 2 weeks Referral Note: We have notified your physician's clinic of the need for a follow-up appointment to be scheduled. If you have not heard from them within the next 2 business days, please call them directly. Arcelia Whaley FNP [Referring, Family Practice] - 06/20/25 10:40 am Referral Note: APPOINTMENT WITH [facility], Discharge Diet: As Directed Discharge Activity: Increase activity as tolerated Patient Instructions: Prednisone (By mouth), Thiamine (By mouth), Folic Acid (By mouth), Levofloxacin (By mouth), Ipratropium/Albuterol (By breathing), Using Oxygen at Home (GEN), Aspiration Pneumonia (GEN), Hypoxia (GEN), Aspiration Precautions (GEN), Opioid Safety, Patient Portal & Lydia Instructions Activity Restrictions/Additional Instructions: Use oxygen at home Chin tuck for swallowing to decrease aspiration Follow-up with pulmonology in 2 to 3 weeks Recommend you decrease and stop alcohol due to newly diagnosed lung disease and possible aspiration Discharge Attestations Time Spent in Discharge Care*: greater than 30 min Time Spent in Smoking Cessation: Patient is not a smoker Quality Metrics Clinical Quality Measures [ No reported AMI, CVA or VTE this stay] Coding Level of Care Code 54111 Diagnoses Acute respiratory failure with hypoxia J96.01 Shortness of breath at rest R06.02 Pulmonary infiltrates R91.8 Factor V Leiden mutation D68.51 Daily consumption of alcohol Z78.9 Time Spent (min) 40
== END 2025-06-18 14:48 | disposition home or self-care (01) | DRG 189 ==
LOC: ER 12:31 → ER IP 14:38 → MEDSURG 15:24
PROVIDERS: Admitting Provider Hospitalist; Emergency Provider Family Medicine; PCP Nurse Practitioner Family; Visit Provider Internal Medicine
DX: J96.01 Acute respiratory failure with hypoxia (principal); D68.51 Activated protein C resistance; E87.1 Hypo-osmolality and hyponatremia; F10.90 Alcohol use, unspecified, uncomplicated; F17.290 Nicotine dependence, other tobacco product, uncomplicated; I10 Essential (primary) hypertension; M10.9 Gout, unspecified; E87.8 Other disorders of electrolyte and fluid balance, not elsewhere classified; R13.10 Dysphagia, unspecified; Z79.01 Long term (current) use of anticoagulants; Z86.718 Personal history of other venous thrombosis and embolism; Z86.73 Personal history of transient ischemic attack (TIA), and cerebral infarction without residual deficits
CPT/HCPCS: 36415; 36600; 71045; 71275; 80051; 80053; 80061; 81001; 82330; 82805; 83036; 83735; 83880; 84100; 84443; 84484; 85025; 85378; 85610; 85651; 86140; 87637; 87806; 92523; 92610; 93005; 93306; 94640; 94760; 96374; 99285; J1938; J2919; J7512; J9999

== ENCOUNTER → 2025-07-22 15:04 | Outpatient (BNVA) | payer MEDICARE, SELFPAY | PROVIDERS: PCP Nurse Practitioner Family; Visit Provider Internal Medicine | DX: R91.8 Other nonspecific abnormal finding of lung field (principal); J96.10 Chronic respiratory failure, unspecified whether with hypoxia or hypercapnia; Z99.81 Dependence on supplemental oxygen; Z87.891 Personal history of nicotine dependence | CPT/HCPCS: 99214; Q3014 ==

== ENCOUNTER 2025-07-31 13:53 | Outpatient (CLI) | payer MEDICARE, SELFPAY ==
--- NOTE | 2025-07-31 14:30 | CTR_ITS ---
PROCEDURE INFORMATION: Exam: CT Chest Without Contrast; Diagnostic Exam date and time: 07/31/2025 2:51 PM Age: 65 years old Clinical indication: Condition or disease; Lung condition and disease; Other: Pulmonary infiltrates; Ex-smoker; Additional info: Pulmonary infiltrates, please test off oxygen and retitrate numbers TECHNIQUE: Imaging protocol: Diagnostic computed tomography of the chest without contrast. Radiation optimization: All CT scans at this facility use at least one of these dose optimization techniques: automated exposure control; mA and/or kV adjustment per patient size (includes targeted exams where dose is matched to clinical indication); or iterative reconstruction. COMPARISON: CT angio chest [id number] 06/16/2025 10:39 PM RADIATION DOSE METRICS: Total DLP (mGy-cm): 1017.76 FINDINGS: Lungs: Interval improvement in previously seen ground-glass opacities in the right upper and middle lobes. Faint areas of mosaic attenuation are seen within the lungs, slightly more pronounced in the right lung. This becomes slightly more pronounced on the expiratory phase. Mild bronchiectasis with bronchial wall thickening, slightly more pronounced in the lower lobes. No traction bronchiectasis or honeycombing. Pleural spaces: Unremarkable. No pneumothorax. No pleural effusion. Heart: Unremarkable. No cardiomegaly. No pericardial effusion. Lymph nodes: Unremarkable. No enlarged lymph nodes. Vasculature: The thoracic aorta is nonaneurysmal. Moderate atherosclerotic calcifications. Diaphragm: Small sliding-type hiatal hernia. Adrenal glands: Stable 1.6 cm low-attenuation right adrenal nodule, compatible with benign adenoma. Kidneys: Similar 3.5 cm right renal cyst. Bones/joints: Multilevel flowing anterior osteophytes compatible with diffuse idiopathic skeletal hyperostosis (DISH). Soft tissues: Unremarkable. CT/CT chest w/o HI-Res(Pulm Only) IMPRESSION: 1. Mild mosaic attenuation which becomes more pronounced with exhalation. Findings can be seen with air trapping from chronic small airways disease. 2. Previously seen right upper and middle lobe ground-glass opacities have improved in the interval. 3. Mild bronchiectasis and bronchial wall thickening, slightly more pronounced in the lower lobes. No traction bronchiectasis or honeycombing. 4. Remainder stable. COMMENTS: Consistent with the [employer]'s Incidental Findings Committee white paper (J Am Caio Radiol 2018): Any incidental renal lesion less than 1 cm or classified as too small to characterize, or any incidental cystic renal lesion characterized as simple-appearing, is likely benign. No follow-up imaging is recommended for these lesions per consensus recommendations based on imaging criteria.
== END 2025-07-31 13:54 | disposition home or self-care (01) ==
LOC: RAD 13:53
PROVIDERS: PCP Nurse Practitioner Family; Visit Provider Internal Medicine
DX: J96.10 Chronic respiratory failure, unspecified whether with hypoxia or hypercapnia (principal); J47.9 Bronchiectasis, uncomplicated; R91.8 Other nonspecific abnormal finding of lung field; I70.0 Atherosclerosis of aorta; K44.9 Diaphragmatic hernia without obstruction or gangrene; N28.1 Cyst of kidney, acquired; M25.78 Osteophyte, vertebrae
CPT/HCPCS: 71250

== ENCOUNTER → 2025-09-01 15:54 | Outpatient (BNVA) | payer MEDICARE, SELFPAY | PROVIDERS: PCP Nurse Practitioner Family; Visit Provider Internal Medicine | DX: R91.8 Other nonspecific abnormal finding of lung field (principal); J47.9 Bronchiectasis, uncomplicated; J96.10 Chronic respiratory failure, unspecified whether with hypoxia or hypercapnia; Z99.81 Dependence on supplemental oxygen; Z87.891 Personal history of nicotine dependence; J44.9 Chronic obstructive pulmonary disease, unspecified; J84.9 Interstitial pulmonary disease, unspecified; J84.10 Pulmonary fibrosis, unspecified; J43.9 Emphysema, unspecified | CPT/HCPCS: 36415; 82103; 82164; 82784; 86036; 86431; 99214; Q3014 ==